=== PATIENT | female | born 1995 | race Caucasian/White ===

== ENCOUNTER 2016-07-17 21:47 | Inpatient (IN) | payer OTHER ==
[2016-07-17] MEDS ORDERED: SODIUM CHLORIDE 0.9% 1,000 ML IV STA (21:48)
[2016-07-17] MEDS ORDERED: SODIUM CHLORIDE 0.9% 500 ML IV STA (21:48)
[2016-07-17] MEDS ORDERED: NALOXONE 0.4 MG/ML 1 ML VIAL IV STA (21:48)
--- NOTE | 2016-07-17 21:50 | ED ---
General Adult HPI - General Stated complaint: unresponsive Time Seen by Provider: 07/17/16 21:48 Source: RN notes reviewed, old records reviewed - History of Present Illness Initial comments: This is a 20-year-old female ER for evaluation status post cardiopulmonary arrest. Patient is unaware of history secondary to critical status reviewed from EMS as well as bystanders, patient was found with needle and arm, EMS found patient with dilated eyes and unresponsiveness, she did go into V. tach during code. Patient was intubated cardioverted and currently in sinus tach being ventilated Review of Systems ROS Statement: Those systems with pertinent positive or pertinent negative responses have been documented in the HPI. ROS Other: All systems not noted in ROS Statement are negative. General Exam Limitations: altered mental status General appearance: obtunded, in distress Head exam: Present: atraumatic, normocephalic, normal inspection Eye exam: Present: other (Fixed and dilated). Absent: scleral icterus, conjunctival injection, periorbital swelling ENT exam: Present: normal exam, mucous membranes moist Neck exam: Present: normal inspection. Absent: tenderness, meningismus, lymphadenopathy Respiratory exam: Present: normal lung sounds bilaterally. Absent: respiratory distress, wheezes, rales, rhonchi, stridor Cardiovascular Exam: Present: normal rhythm, tachycardia, normal heart sounds. Absent: systolic murmur, diastolic murmur, rubs, gallop, clicks GI/Abdominal exam: Present: soft, normal bowel sounds. Absent: distended, tenderness, guarding, rebound, rigid Extremities exam: Present: normal inspection, full ROM, normal capillary refill. Absent: tenderness, pedal edema, joint swelling, calf tenderness Back exam: Present: normal inspection Neurological exam: Present: altered Skin exam: Present: cyanosis, diaphoretic, pallor, mottled. Absent: rash Course Vital Signs 07/17/16 07/17/16 07/17/16 21:47 22:07 22:28 Temperature 98.2 F Pulse Rate 148 H 126 H 114 H Respiratory 30 H 36 H Rate Blood Pressure 145/66 156/111 128/84 O2 Sat by Pulse 100 100 98 Oximetry - Reevaluation(s) Reevaluation #1: 07/17/16 22:38 Patient's pupils that are improved from fixed and dilated and responsive, Reevaluation #2: 03/19/17 22:38 Unable to get any other history from patient's medical record 07/17/16 22:38 history patient may have been vomiting blood of recent Reevaluation #3: 07/17/16 22:38 Patient will be thoroughly resuscitated, patient also has positive chest x-ray we'll treat for antibiotics for possible pneumonia EKG Findings - EKG Comments: EKG Findings:: EKG shows sinus tachycardia rate 146, pO2 96, QRS 80, QTC 536 Medical Decision Making - Medical Decision Making 20 female in the ER status post cardiopulmonary arrest, unknown cause arrest, patient was found with needle in right arm but no heroin or opiates in drug screen, no response to Narcan, patient originally was resuscitated with CPR and intubated and then went into V. fib, patient was cardioverted and continuing to be resuscitated, potter arrival to the emergency room patient was in sinus tachycardia, patient found to be unresponsive, pupils have improved and no longer fixed and dilated, chest x-ray suspicious for pneumonia, CT brain negative - Lab Data Result diagrams: 07/17/16 21:47 07/17/16 21:47 Lab Results 07/17/16 07/17/16 07/17/16 Range/Units 21:47 21:47 21:47 WBC 7.9 (3.8-10.6) k/uL RBC 4.44 (3.80-5.40) m/uL Hgb 12.6 (11.4-16.0) gm/dL Hct 40.3 (34.0-46.0) % MCV 90.8 (80.0-100.0) fL MCH 28.4 (25.0-35.0) pg MCHC 31.3 (31.0-37.0) g/dL RDW 12.4 (11.5-15.5) % Plt Count 249 (150-450) k/uL Neutrophils % 44 % Lymphocytes % 43 % Monocytes % 4 % Eosinophils % 6 % Basophils % 0 % Neutrophils # 3.5 (1.3-7.7) k/uL Lymphocytes # 3.4 (1.0-4.8) k/uL Monocytes # 0.3 (0-1.0) k/uL Eosinophils # 0.4 (0-0.7) k/uL Basophils # 0.0 (0-0.2) k/uL Hypochromasia Slight PT (9.0-12.0) sec INR (<1.1) Sodium 138 (137-145) mmol/L Potassium 4.5 (3.5-5.1) mmol/L Chloride 101 (98-107) mmol/L Carbon Dioxide 19 L (22-30) mmol/L Anion Gap 18 mmol/L BUN 11 (7-17) mg/dL Creatinine 0.94 (0.52-1.04) mg/dL Est GFR (MDRD) Af Amer >60 (>60 ml/min/1.73 sqM) Est GFR (MDRD) Non-Af >60 (>60 ml/min/1.73 sqM) Glucose 288 H (74-99) mg/dL Plasma Lactic Acid Josse 8.5 H* (0.7-2.0) mmol/L Calcium 8.6 (8.4-10.2) mg/dL Phosphorus 10.1 H* (2.5-4.5) mg/dL Magnesium 2.0 (1.6-2.3) mg/dL Total Bilirubin 0.6 (0.2-1.3) mg/dL AST 81 H (14-36) U/L ALT 89 H (9-52) U/L Alkaline Phosphatase 46 (38-126) U/L Total Protein 6.5 (6.3-8.2) g/dL Albumin 3.5 (3.5-5.0) g/dL Lipase 74 (23-300) U/L Urine Color Urine Appearance (Clear) Urine pH (5.0-8.0) Ur Specific [place] (1.001-1.035) Urine Protein (Negative) Urine Glucose (UA) (Negative) Urine Ketones (Negative) Urine Blood (Negative) Urine Nitrite (Negative) Urine Bilirubin (Negative) Urine Urobilinogen (<2.0) mg/dL Ur Leukocyte Esterase (Negative) Urine RBC (0-5) /hpf Urine WBC (0-5) /hpf Ur Squamous Epith Cells (0-4) /hpf Amorphous Sediment (None) /hpf Hyaline Casts (0-2) /lpf Urine Mucus (None) /hpf Urine HCG, Qual (Not Detectd) Salicylates <1.0 mg/dL Urine Opiates Screen (NotDetected) Ur Oxycodone Screen (NotDetected) Urine Methadone Screen (NotDetected) Ur Propoxyphene Screen (NotDetected) Acetaminophen <10.0 ug/mL Ur Barbiturates Screen (NotDetected) U Tricyclic Antidepress (NotDetected) Ur Phencyclidine Scrn (NotDetected) Ur Amphetamines Screen (NotDetected) U Methamphetamines Scrn (NotDetected) U Benzodiazepines Scrn (NotDetected) Urine Cocaine Screen (NotDetected) U Marijuana (THC) Screen (NotDetected) Serum Alcohol <10 mg/dL 07/17/16 07/17/16 07/17/16 Range/Units 21:47 22:10 22:10 WBC (3.8-10.6) k/uL RBC (3.80-5.40) m/uL Hgb (11.4-16.0) gm/dL Hct (34.0-46.0) % MCV (80.0-100.0) fL MCH (25.0-35.0) pg MCHC (31.0-37.0) g/dL RDW (11.5-15.5) % Plt Count (150-450) k/uL Neutrophils % % Lymphocytes % % Monocytes % % Eosinophils % % Basophils % % Neutrophils # (1.3-7.7) k/uL Lymphocytes # (1.0-4.8) k/uL Monocytes # (0-1.0) k/uL Eosinophils # (0-0.7) k/uL Basophils # (0-0.2) k/uL Hypochromasia PT 10.9 (9.0-12.0) sec INR 1.1 (<1.1) Sodium (137-145) mmol/L Potassium (3.5-5.1) mmol/L Chloride (98-107) mmol/L Carbon Dioxide (22-30) mmol/L Anion Gap mmol/L BUN (7-17) mg/dL Creatinine (0.52-1.04) mg/dL Est GFR (MDRD) Af Amer (>60 ml/min/1.73 sqM) Est GFR (MDRD) Non-Af (>60 ml/min/1.73 sqM) Glucose (74-99) mg/dL Plasma Lactic Acid Josse (0.7-2.0) mmol/L Calcium (8.4-10.2) mg/dL Phosphorus (2.5-4.5) mg/dL Magnesium (1.6-2.3) mg/dL Total Bilirubin (0.2-1.3) mg/dL AST (14-36) U/L ALT (9-52) U/L Alkaline Phosphatase (38-126) U/L Total Protein (6.3-8.2) g/dL Albumin (3.5-5.0) g/dL Lipase (23-300) U/L Urine Color Yellow Urine Appearance Cloudy H (Clear) Urine pH 7.0 (5.0-8.0) Ur Specific [place] 1.017 (1.001-1.035) Urine Protein 2+ H (Negative) Urine Glucose (UA) 1+ H (Negative) Urine Ketones Negative (Negative) Urine Blood Small H (Negative) Urine Nitrite Negative (Negative) Urine Bilirubin Negative (Negative) Urine Urobilinogen <2.0 (<2.0) mg/dL Ur Leukocyte Esterase Negative (Negative) Urine RBC 60 H (0-5) /hpf Urine WBC 56 H (0-5) /hpf Ur Squamous Epith Cells 3 (0-4) /hpf Amorphous Sediment Occasional H (None) /hpf Hyaline Casts 35 H (0-2) /lpf Urine Mucus Occasional H (None) /hpf Urine HCG, Qual Not Detected (Not Detectd) Salicylates mg/dL Urine Opiates Screen Not Detected (NotDetected) Ur Oxycodone Screen Not Detected (NotDetected) Urine Methadone Screen Not Detected (NotDetected) Ur Propoxyphene Screen Not Detected (NotDetected) Acetaminophen ug/mL Ur Barbiturates Screen Not Detected (NotDetected) U Tricyclic Antidepress Not Detected (NotDetected) Ur Phencyclidine Scrn Not Detected (NotDetected) Ur Amphetamines Screen Not Detected (NotDetected) U Methamphetamines Scrn Not Detected (NotDetected) U Benzodiazepines Scrn Detected H (NotDetected) Urine Cocaine Screen Not Detected (NotDetected) U Marijuana (THC) Screen Detected H (NotDetected) Serum Alcohol mg/dL - Radiology Data Radiology results: report reviewed (Chest x-ray shows possible infiltrates and edema, CT brain is negative for acute disease), image reviewed Critical Care Time Critical Care Time: Yes Total Critical Care Time: 65 Disposition Clinical Impression: Cardiopulmonary arrest, Ventricular fibrillation, Drug overdose Disposition: ADMITTED IP TO THIS [facility] Condition: Critical Referrals: None,Stated [Primary Care Provider] - 1-2 days
--- NOTE | 2016-07-17 22:08 | XR ---
EXAMINATION TYPE: XR chest 1V portable DATE OF EXAM: 07/17/2016 10:01 PM COMPARISON: CXR earlier. HISTORY: Tube Placement. TECHNIQUE: Single frontal supine view of the chest is obtained. FINDINGS: ET and new OGT satisfactory. There are new perihilar opacities bilaterally. No pleural eff usion, or pneumothorax is seen. The cardiac silhouette size is within normal limits. The osseous s tructures are intact. IMPRESSION: 1. ET and new OGT now satisfactory. 2. New bilateral perihilar edema +/- infiltrates.
[2016-07-17 22:09] LABS: Basophils % (A) 0 %; CH 27.9; CHCM 30.8; Eosinophils # (A) 0.4 k/uL (0-0.7); Eosinophils % (A) 6 %; HCT 40.3 % (34.0-46.0); HDW 2.34; HGB 12.6 gm/dL (11.4-16.0); Hypochromasia Slight; Luc # (Auto) 0.24; Luc % (Auto) 3; Lymphocytes # (A) 3.4 k/uL (1.0-4.8); Lymphocytes % (A) 43 %; MCH 28.4 pg (25.0-35.0); MCHC 31.3 g/dL (31.0-37.0); MCV 90.8 fL (80.0-100.0); Mean Platelet Volume 7.5; Monocytes # (A) 0.3 k/uL (0-1.0); Monocytes % (A) 4 %; Neutrophils # (A) 3.5 k/uL (1.3-7.7); Neutrophils % (A) 44 %; RBC 4.44 m/uL (3.80-5.40); RDW 12.4 % (11.5-15.5); WBC 7.9 k/uL (3.8-10.6)
[2016-07-17 22:19] LABS: ALT 89 U/L (9-52); Acetaminophen <10.0 ug/mL; Alcohol <10 mg/dL; Alkaline Phosphatase 46 U/L (38-126); Anion Gap 18 mmol/L; Blood Urea Nitrogen 11 mg/dL (7-17); Calcium 8.6 mg/dL (8.4-10.2); Carbon Dioxide 19 mmol/L (22-30); Chloride 101 mmol/L (98-107); Glucose 288 mg/dL (74-99); Non-African American GFR(MDRD) >60 (>60 ml/min/1.73 sqM); Potassium 4.5 mmol/L (3.5-5.1); Salicylate <1.0 mg/dL; Sodium 138 mmol/L (137-145); Total Bilirubin 0.6 mg/dL (0.2-1.3); Total Protein 6.5 g/dL (6.3-8.2)
[2016-07-17 22:22] LABS: INR 1.1 (<1.1); Prothrombin Time 10.9 sec (9.0-12.0)
[2016-07-17] MEDS ORDERED: LEVOFLOXACIN 750MG-D5W PMX 750 MG in DEXTROSE/WATER 1 150ML.BAG IVPB STA (22:22)
[2016-07-17] MEDS ORDERED: NALOXONE 0.4 MG/ML 10 ML VIAL IVP STA (22:22)
[2016-07-17 22:23] LABS: Amorphous Sediment,Urine Occasional /hpf; Appearance,Urine Cloudy (Clear); Bilirubin,Urine Negative (Negative); Glucose,Urine (UA) 1+ (Negative); Ketones,Urine Negative (Negative); Leukocyte Esterase,Urine Negative (Negative); Mucus,Urine Occasional /hpf; Nitrite,Urine Negative (Negative); Particle Count 25932; Protein,Urine 2+ (Negative); RBC,Urine 60 /hpf (0-5); Specific Gravity,Urine 1.017 (1.001-1.035); Squamous Epithelial Cell,Urine 3 /hpf (0-4); UA Billing (MACRO vs. MICRO) MICRO; Urobilinogen,Urine <2.0 mg/dL (<2.0); WBC,Urine 56 /hpf (0-5)
[2016-07-17 22:24] LABS: AST 81 U/L (14-36)
[2016-07-17 22:27] LABS: Phosphorous 10.1 mg/dL (2.5-4.5)
[2016-07-17 22:30] LABS: Creatine Kinase 162 U/L (30-135)
[2016-07-17] MEDS ORDERED: NALOXONE 0.4 MG/ML 1 ML VIAL IV PRN (22:33)
[2016-07-17] MEDS ORDERED: IPRATROPIUM-ALBUTEROL 3 ML NEB INHALATION PRN (22:33)
[2016-07-17 22:42] LABS: Creatine Kinase MB 1.2 ng/mL (0.0-2.4); Troponin I <0.012 ng/mL (0.000-0.034)
[2016-07-17] MEDS ORDERED: RX INFO: IV CONTRAST WAS GIVEN 1 EACH MISC MISCELLANE PRN (23:07)
[2016-07-17] MEDS ORDERED: PROPOFOL 500 MG in EMPTY BAG 1 BAG IV ONE (23:07)
[2016-07-17 23:09] LABS: ABG Base Excess -6.5 mmol/L; ABG HCO3 19 mmol/L (21-25); ABG PCO2 41 mmHg (35-45); ABG PH 7.29 (7.35-7.45); ABG PO2 142 mmHg (83-108); ABG TCO2 20 mmol/L (19-24)
[2016-07-17] MEDS ORDERED: ALBUTEROL NEBULIZED 2.5 MG/3 ML INHALATION STA (23:11)
--- NOTE | 2016-07-17 23:24 | CT ---
EXAM: CT Head Without Intravenous Contrast. CLINICAL HISTORY: Reason: weakness TECHNIQUE: Axial computed tomography images of the head/brain without intravenous contrast. Coronal and sagittal reconstructions are performed. CTDI is 57.4 mGy and DLP is 995.5 mGy-cm COMPARISON: No relevant prior studies available. FINDINGS: Brain: Unremarkable. No hemorrhage. No significant white matter disease. No edema. Ventricles: Unremarkable. No ventriculomegaly. Bones/joints: Unremarkable. No acute fracture. Soft tissues: Unremarkable. Sinuses: Moderate amount of opacification in ethmoid air cells, left maxillary sinus and bilateral sphenoid sinuses. Mastoid air cells: Unremarkable as visualized. No mastoid effusion. IMPRESSION: No acute intracranial findings.
--- NOTE | 2016-07-18 00:19 | XR ---
INDICATION: Chest pain COMPARISON: CXR 07/17/16 performed at 2151 hrs. FINDINGS: Single frontal view of the chest is provided. Endotracheal tube, endogastric tube remain in stable position. There are patchy bilateral airspace opacities, unchanged. There is no pleural effusion or pneumothorax. Transcutaneous pacer pad projects over the right chest. Heart size and pulmonary vascularity are normal. Visualized osseous structures are unremarkable. IMPRESSION: 1. Stable endotracheal tube and endogastric tube. 2. Unchanged bilateral airspace opacities.
[2016-07-18] MEDS: DEXTROSE 5%-0.45% NACL 1,000 ML IV SCH ×3 (00:21→19:28)
[2016-07-18] MEDS: PROPOFOL 500 MG in EMPTY BAG 1 BAG IV SCH ×3 (01:05→13:25)
[2016-07-18 01:18] LABS: Glucose,Whole Blood 297 mg/dL (75-99)
--- NOTE | 2016-07-18 01:22 | CT ---
EXAM: CT Chest With Intravenous Contrast. CLINICAL HISTORY: Reason: Pain TECHNIQUE: Axial computed tomography images of the chest with intravenous contrast. DLP is 252.70 mGy-cm COMPARISON: No relevant prior studies available. FINDINGS: Lungs: No central pulmonary embolus. Bilateral nodular infiltrates and consolidation/aspiration. Pleural space: Unremarkable. No pneumothorax. No effusion. Heart: No cardiomegaly. No pericardial effusion. Bones/joints: No acute fracture. Soft tissues: Unremarkable. Vasculature: Unremarkable. Lymph nodes: No enlarged lymph nodes. Tubes, lines and devices: Endotracheal tube. Enteric tube in the gastroduodenal region. IMPRESSION: 1. No central pulmonary embolus. 2. Bilateral nodular infiltrates and consolidation/aspiration.
[2016-07-18] MEDS ORDERED: NOREPINEPHRINE 4 MG in SODIUM CHLORIDE 0.9% 250 ML IV SCH (03:30)
[2016-07-18] MEDS ORDERED: levETIRAcetam IV 1,000 MG in SALINE 1 100ML.BAG IVPB STA (03:35)
[2016-07-18] MEDS ORDERED: INSULIN LISPRO (humaLOG) 300 UNIT/3 ML VIAL SQ SCH (03:45)
[2016-07-18] MEDS: IPRATROPIUM-ALBUTEROL 3 ML NEB INHALATION SCH ×6 (04:01→23:11)
[2016-07-18 04:13] LABS: Appearance,Urine Clear (Clear); Bilirubin,Urine Negative (Negative); Glucose,Urine (UA) 3+ (Negative); Ketones,Urine Negative (Negative); Leukocyte Esterase,Urine Negative (Negative); Nitrite,Urine Negative (Negative); PH, Urine 5.5 (5.0-8.0); Protein,Urine Negative (Negative); UA Billing (MACRO vs. MICRO) CHEM; Urobilinogen,Urine <2.0 mg/dL (<2.0)
[2016-07-18 05:03] LABS: Glucose,Whole Blood 180 mg/dL (75-99)
[2016-07-18 05:25] LABS: CH 28.6; CHCM 33.3; HCT 40.3 % (34.0-46.0); HDW 2.54; HGB 13.6 gm/dL (11.4-16.0); Immature Gran Flag Moderate; MCHC 33.6 g/dL (31.0-37.0); MCV 86.3 fL (80.0-100.0); Mean Platelet Volume 8.2; RBC 4.67 m/uL (3.80-5.40); RDW 12.5 % (11.5-15.5); WBC 8.1 k/uL (3.8-10.6)
[2016-07-18] MEDS: ACETAMINOPHEN IV (For NPO) 1,000 MG in EMPTY BAG 1 BAG IVPB PRN ×2 (05:25→13:03)
[2016-07-18 05:38] LABS: ALT 87 U/L (9-52); AST 79 U/L (14-36); Alkaline Phosphatase 34 U/L (38-126); Anion Gap 9 mmol/L; Blood Urea Nitrogen 12 mg/dL (7-17); Calcium 7.7 mg/dL (8.4-10.2); Carbon Dioxide 23 mmol/L (22-30); Chloride 105 mmol/L (98-107); Glucose 182 mg/dL (74-99); Magnesium 1.5 mg/dL (1.6-2.3); Non-African American GFR(MDRD) >60 (>60 ml/min/1.73 sqM); Phosphorous 2.5 mg/dL (2.5-4.5); Potassium 4.4 mmol/L (3.5-5.1); Sodium 137 mmol/L (137-145); Total Bilirubin 0.6 mg/dL (0.2-1.3); Total Protein 5.9 g/dL (6.3-8.2)
[2016-07-18 05:40] LABS: Add Differential Manual Differential
[2016-07-18 05:42] LABS: Nucleated Red Blood Cells 0 /100 WBC (0-0); Total Cells Counted 100
[2016-07-18 05:43] LABS: Manual Review Performed
[2016-07-18] MEDS ORDERED: Potassium Replacement Protocol 1 EACH MISC MISCELLANE PRN (05:48)
[2016-07-18] MEDS ORDERED: Phosphorus Replacement Protoco 1 EACH MISC MISCELLANE PRN (05:48)
[2016-07-18] MEDS ORDERED: Magnesium Replacement Protocol 1 EACH MISC MISCELLANE PRN (05:48)
[2016-07-18 05:51] LABS: ABG Base Excess -2.6 mmol/L; ABG HCO3 22 mmol/L (21-25); ABG PCO2 36 mmHg (35-45); ABG PO2 136 mmHg (83-108); ABG TCO2 23 mmol/L (19-24)
[2016-07-18] MEDS: MAGNESIUM SULFATE-D5W PMX 1 GM in DEXTROSE/WATER 1 100ML.BAG IVPB SCH ×2 (06:13→07:26)
[2016-07-18] MEDS ORDERED: PNEUMOCOCCAL VACC-PNEUMOVAX 23 25 MCG/0.5 ML VIAL IM ONE (07:10)
[2016-07-18] MEDS: INSULIN LISPRO (humaLOG) 300 UNIT/3 ML VIAL SQ SCH ×3 (07:27→17:54)
[2016-07-18] MEDS: HEPARIN SODIUM,PORCINE 5,000 UNIT/ML 1 ML VIAL SQ SCH ×2 (08:05→15:24)
[2016-07-18] MEDS: CHLORHEXIDINE GLUCONATE 15 ML CUP MUCOUS MEM SCH ×2 (08:05→22:00)
[2016-07-18] MEDS: PANTOPRAZOLE 40 MG/10 ML VIAL IV SCH (08:55)
[2016-07-18 08:58] LABS: Hemoglobin A1C 5.2 % (4.2-6.1)
[2016-07-18] MEDS ORDERED: levETIRAcetam IV 750 MG in SODIUM CHLORIDE 0.9% 100 ML IVPB SCH (09:00)
[2016-07-18] MEDS: PIPERACILLIN-TAZOBACTAM 3.375 GM in DEXTROSE/WATER 1 50ML.BAG IVPB SCH ×2 (09:55→15:25)
--- NOTE | 2016-07-18 09:59 | XR ---
EXAMINATION TYPE: XR chest 1V DATE OF EXAM: 07/18/2016 6:40 AM COMPARISON: Prior chest x-ray 17 July 2016 HISTORY: Intubation TECHNIQUE: Single frontal view of the chest is obtained. FINDINGS: Endotracheal tube and NG tube are overlying appropriate positions, there is an overlying d efibrillator pad. Perihilar airspace disease is present. No pneumothorax or pleural effusion. Cardiom ediastinal silhouette not significantly changed. IMPRESSION: Perihilar edema versus pneumonia, follow-up recommended
--- NOTE | 2016-07-18 12:00 | CT ---
EXAMINATION TYPE: CT brain wo con DATE OF EXAM: 07/18/2016 11:53 AM COMPARISON: NONE HISTORY: Patient shows signs of altered mental status and possible seizure activity post drug overdos e. CT DLP: 766.2 mGycm Automated exposure control for dose reduction was used. FINDINGS: There is no acute intracranial hemorrhage, mass effect, or midline shift identified. The ventricles and sulci are within normal limits in size. Findings a moderate sinusitis. IMPRESSION: 1. No acute intracranial hemorrhage, mass effect, or midline shift is seen. 2. Chronic sinusitis.
[2016-07-18 12:31] LABS: Glucose,Whole Blood 149 mg/dL (75-99)
[2016-07-18] MEDS ORDERED: VALPROATE SODIUM IVPB ONE (12:49)
[2016-07-18] MEDS ORDERED: SODIUM CHLORIDE 0.9% IVPB ONE (12:49)
--- NOTE | 2016-07-18 15:52 | P.CNPUL ---
History of Present Illness Consult date: 07/18/16 Requesting physician: Bryant Gutierrez Reason for consult: other (Acute respiratory failure secondary to cardiopulmonary arrest) Chief complaint: Unresponsiveness History of present illness: This is a 20-year-old female with history of IV drug abuse, alcohol abuse, patient was recently released from a rehab facility and while at her boyfriend's , patient apparently suffered from a sudden collapse. EMS arrived, patient was found to have an empty needle in her arm, patient was noted to have dilated pupils, she was unresponsive, and while EMS was at the site, patient had an episode of V. tach during the code. Down time must have been at least over 10 minutes according to her mother. In the meantime the patient was intubated, defibrillated, cardioverted, and brought into the ER being ventilated. Upon arrival she was in sinus tachycardia, and she was unresponsive. Workup in the ER included a CT of the brain which was unremarkable. Drug screen was negative. CT of the chest showed bilateral pneumonia this was also noted on the chest x-ray. Apparently the findings are consistent with possible aspiration. Upon my evaluation in the ICU, patient is noted to be unresponsive to any stimuli, there is upward deviation of both eyes patient is having upper muscle jerking intermittently, hence she was loaded with Keppra by the neurologist, and neurological evaluation is pending. Upon my evaluation, I felt the patient must have sustained a significant anoxic brain injury touched bases on this with her mother at bedside, but I felt it would be best to determine the severity of her oxygen brain injury over the next 72 hours. And she is yet to be seen by neurology on consultation. Recommended empiric antibiotics for aspiration pneumonia, patient is now on GI and DVT prophylaxis, and repeat CT of the brain this morning showed no evidence of acute process involving the brain. Review of Systems ROS unobtainable: due to endotracheal tube, due to mental status Past Medical History Past Medical History: Unable to Obtain Additional Past Medical History / Comment(s): hepatitis C via EMS; Drug OD 10- 15 times; History of Any Multi-Drug Resistant Organisms: None Reported Past Surgical History: Adenoidectomy, Appendectomy Additional Past Surgical History / Comment(s): ear tubes Past Anesthesia/Blood Transfusion Reactions: No Reported Reaction Additional Past Anesthesia/Blood Transfusion Reaction / Comment(s): no hx of blood transfusions Past Psychological History: Anxiety, Bipolar, Depression Smoking Status: Current every day smoker Past Drug Use History: Heroin, IV Drug Use - Past Family History Mother Additional Family Medical History / Comment(s): deviated septum, lost hearing in left ear (60%) to a virus a few years ago Father Additional Family Medical History / Comment(s): from OD about 1.5 months ago Medications and Allergies Allergies Allergy/AdvReac Type Severity Reaction Status Date / Time No Known Allergies Allergy Verified 07/17/16 23:49 Physical Exam Vitals: Vital Signs Temp Pulse Resp BP Pulse Ox 07/18/16 15:33 112 H 07/18/16 15:00 111 H 30 H 122/60 100 07/18/16 14:30 117 H 30 H 122/60 100 07/18/16 14:00 122 H 30 H 122/60 100 07/18/16 13:30 126 H 29 H 122/60 100 07/18/16 13:00 136 H 29 H 118/59 100 07/18/16 12:30 116 H 28 H 118/59 100 07/18/16 12:00 100.4 F H 122 H 24 118/59 100 07/18/16 11:00 124 H 25 H 101/62 100 07/18/16 10:30 120 H 22 101/62 100 07/18/16 10:00 118 H 26 H 101/62 97 07/18/16 09:30 114 H 17 101/62 100 07/18/16 09:00 101 H 26 H 96/54 100 07/18/16 08:30 97 23 96/54 100 07/18/16 08:00 99.5 F 105 H 16 96/54 100 07/18/16 07:35 96 07/18/16 07:30 95 18 100 07/18/16 07:19 91 07/18/16 07:00 97 23 91 L 07/18/16 06:45 93 26 H 92 L 07/18/16 06:30 100 F H 94 20 98 07/18/16 06:15 94 25 H 100 07/18/16 06:00 102 H 20 100 07/18/16 05:45 97 20 100 07/18/16 05:30 100.4 F H 101 H 28 H 100 07/18/16 05:15 97 25 H 100 07/18/16 05:00 98 28 H 100 07/18/16 04:45 95 23 100 07/18/16 04:30 100.4 F H 95 25 H 100 07/18/16 04:15 94 25 H 100 07/18/16 04:00 100 F H 93 25 H 100 07/18/16 03:58 92 07/18/16 03:45 99.7 F H 92 30 H 100 07/18/16 03:43 91 07/18/16 03:30 90 26 H 100 07/18/16 03:15 99.3 F 89 24 100 07/18/16 03:00 99 F 91 22 100 07/18/16 02:45 88 22 99 07/18/16 02:30 98.6 F 91 27 H 127/69 99 07/18/16 02:15 93 24 131/72 100 07/18/16 02:00 98.2 F 93 24 127/70 97 07/18/16 01:45 97.9 F 93 20 130/76 100 07/18/16 01:30 104 H 20 132/75 98 07/18/16 01:15 95.8 F L 93 24 132/81 99 07/18/16 01:05 106 H 24 131/79 98 07/18/16 00:23 96.9 F L 90 28 H 130/76 100 07/18/16 00:02 90 28 H 130/78 100 07/17/16 23:38 99 36 H 134/81 97 07/17/16 23:18 104 H 32 H 144/84 90 L 07/17/16 23:03 107 H 34 H 140/88 93 L 07/17/16 22:53 103 H 32 H 139/92 89 L Intake and Output 07/18/16 07/18/16 07/18/16 06:59 14:59 22:59 Intake Total 733.165 6082.104 133 Output Total 715 1050 50 Balance 132.034 142.104 83 Intake: IV 15 34 13 0.9 normal saline at KVO 10 10 0.9 normal saline for 21 3 pressure Pressure bag 15 3 Intake, IV Titration 302.103 6799.104 100 Amount ACETAMINOPHEN IV (For NPO 100 100 ) 1,000 mg In Empty Bag 1 bag @ 400 mls/hr IVPB Q6H PRN Rx#:[id number] Dextrose 5%-0.45% NaCl 1, 500 700 100 000 ml @ 100 mls/hr IV . Q10H [facility] Rx#:[id number] Magnesium Sulfate-D5w Pmx 100 100 1 gm In Dextrose/Water 1 100ml.bag @ 100 mls/hr IVPB Q1H [facility] Rx#: [id number] Piperacillin-Tazobactam 3 50.0 .375 gm In Dextrose/Water 1 50ml.bag @ 12.5 mls/hr IVPB Q8HR [facility] Rx#: [id number] Propofol 500 mg In Empty 2.607 Bag 1 bag @ Titrate IV . Q0M ONE Rx#:[id number] Propofol 500 mg In Empty 29.427 16.909 Bag 1 bag @ Titrate IV . Q0M [facility] Rx#:[id number] Propofol 500 mg In Empty 1.195 Bag 1 bag @ Titrate IV . Q0M [facility] Rx#:[id number] Valproate Sodium 820 mg 50 In Sodium Chloride 0.9% 50 ml @ 50 mls/hr IVPB ONCE ONE Rx#:[id number] levETIRAcetam IV 1,000 mg 100 In Saline 1 100ml.bag @ 400 mls/hr IVPB ONCE STA Rx#:[id number] levETIRAcetam IV 750 mg 100 In Sodium Chloride 0.9% 100 ml @ 400 mls/hr IVPB Q12HR [facility] Rx#:[id number] Tube Feeding 40 20 Output: Gastric Drainage 325 Urine 715 725 50 Other: Voiding Method Incontinent Indwelling Catheter Indwelling Catheter Weight 54.4 kg 54.4 kg Patient Weight 07/19/16 06:59 Weight 54.4 kg ABP, PAP, CO, CI - Last 8 Hours Arterial Blood Pressure 145/72 Arterial Blood Pressure 152/68 Arterial Blood Pressure 152/72 Arterial Blood Pressure 138/67 Arterial Blood Pressure 153/75 Arterial Blood Pressure 154/79 Arterial Blood Pressure 151/76 Arterial Blood Pressure 151/61 Arterial Blood Pressure 142/67 Arterial Blood Pressure 134/55 Arterial Blood Pressure 131/63 Arterial Blood Pressure 134/55 Arterial Blood Pressure 125/56 Arterial Blood Pressure 126/54 Limitations: altered mental status General appearance: obtunded, unresponsive on mechanical ventilation Head exam: Present: atraumatic, normocephalic, normal inspection Eye exam: Pupils are both reactive to light however there is upward deviation of both eyeballs. ENT exam: Present: normal exam, mucous membranes moist Neck exam: Present: normal inspection. Absent: tenderness, meningismus, lymphadenopathy Respiratory exam: Minimal crackles at the bases, no rhonchi, no wheezes Cardiovascular Exam: Present: normal rhythm, tachycardia, normal heart sounds. Absent: systolic murmur, diastolic murmur, rubs, gallop, clicks GI/Abdominal exam: Present: soft, normal bowel sounds. Absent: distended, tenderness, guarding, rebound, rigid Extremities exam: Present: normal inspection, full ROM, normal capillary refill. Absent: tenderness, pedal edema, joint swelling, calf tenderness Back exam: Present: normal inspection Neurological exam: Present: altered, patient is unresponsive to any stimuli, upward deviation of both eyes noted pupils are both reactive no response to any painful stimuli. Skin exam: No cyanosis noted. And no clubbing. Results - Laboratory Findings CBC and BMP: 07/18/16 04:50 07/18/16 04:50 ABG ABG pH 7.40 (7.35-7.45) 07/18/16 05:40 ABG pCO2 36 mmHg (35-45) 07/18/16 05:40 ABG pO2 136 mmHg (83-108) H 07/18/16 05:40 ABG O2 Saturation 99.0 % (94-97) H 07/18/16 05:40 PT/INR, D-dimer PT 10.9 sec (9.0-12.0) 07/17/16 21:47 INR 1.1 (<1.1) 07/17/16 21:47 D-Dimer 1.31 mg/L FEU (<0.60) H 07/17/16 21:47 Abnormal lab findings: Abnormal Labs 07/18/16 07/18/16 07/18/16 01:15 01:22 03:30 Lymphocytes # (Manual) ABG pO2 ABG O2 Saturation ABG Lactic Acid Creatinine Glucose POC Glucose (mg/dL) 297 H Plasma Lactic Acid Josse 4.2 H* Calcium Magnesium AST ALT Alkaline Phosphatase Troponin I Total Protein Albumin Ur Specific [place] 1.050 H Urine Glucose (UA) 3+ H 07/18/16 07/18/16 07/18/16 04:50 04:50 04:50 Lymphocytes # (Manual) 0.1 L ABG pO2 ABG O2 Saturation ABG Lactic Acid 3.2 H* Creatinine 0.50 L Glucose 182 H POC Glucose (mg/dL) Plasma Lactic Acid Josse Calcium 7.7 L Magnesium 1.5 L AST 79 H ALT 87 H Alkaline Phosphatase 34 L Troponin I Total Protein 5.9 L Albumin 3.0 L Ur Specific [place] Urine Glucose (UA) 07/18/16 07/18/16 07/18/16 04:58 05:40 12:29 Lymphocytes # (Manual) ABG pO2 136 H ABG O2 Saturation 99.0 H ABG Lactic Acid Creatinine Glucose POC Glucose (mg/dL) 180 H 149 H Plasma Lactic Acid Josse Calcium Magnesium AST ALT Alkaline Phosphatase Troponin I Total Protein Albumin Ur Specific [place] Urine Glucose (UA) 07/18/16 13:20 Lymphocytes # (Manual) ABG pO2 ABG O2 Saturation ABG Lactic Acid Creatinine Glucose POC Glucose (mg/dL) Plasma Lactic Acid Josse Calcium Magnesium AST ALT Alkaline Phosphatase Troponin I 1.600 H* Total Protein Albumin Ur Specific [place] Urine Glucose (UA) - Diagnostic Findings Chest x-ray: image reviewed CT scan - chest: image reviewed Additional studies: CT of the brain was also reviewed no evidence of acute process noted. Assessment and Plan Plan: Impression: 1 status post acute cardiopulmonary arrest, most likely secondary to heroin overdose. Although her drug screen was negative, and no response was noted to Narcan upon initial evaluation by EMS. 2 acute episode of ventricular fibrillation requiring cardioversion by EMS in the field. 3 acute bilateral aspiration pneumonia 4 acute respiratory failure secondary to above. Requiring intubation and mechanical ventilation. 5 history of IV drug abuse and alcohol abuse 6 strongly suspect severe anoxic brain injury. Recommendation: Continue present supportive care measures including mechanical ventilation, GI and DVT prophylaxis, seizure precautions and she is presently on Keppra, nutritional support, empiric antibiotics for aspiration pneumonia, neurological consultation which is pending, and over the next 72 hours, we'll discuss with the family again her neurological recovery if any. Prognosis is definitely poor and guarded. We will continue to follow. Time with Patient: Greater than 30
[2016-07-18] MEDS ORDERED: VALPROATE SODIUM 500 MG in SODIUM CHLORIDE 0.9% 50 ML IVPB SCH (16:00)
[2016-07-18 17:55] LABS: Glucose,Whole Blood 91 mg/dL (75-99)
[2016-07-18] MEDS: levETIRAcetam IV 1,000 MG in SODIUM CHLORIDE 0.9% 100 ML IVPB SCH (22:00)
[2016-07-18] MEDS: LACOSAMIDE IV 150 MG in SODIUM CHLORIDE 0.9% 50 ML IVPB SCH (22:00)
[2016-07-19 00:43] LABS: Glucose,Whole Blood 117 mg/dL (75-99)
[2016-07-19] MEDS: INSULIN LISPRO (humaLOG) 300 UNIT/3 ML VIAL SQ SCH ×5 (01:44→23:53)
[2016-07-19] MEDS: PIPERACILLIN-TAZOBACTAM 3.375 GM in DEXTROSE/WATER 1 50ML.BAG IVPB SCH ×4 (01:44→23:40)
[2016-07-19] MEDS: VALPROATE SODIUM 500 MG in SODIUM CHLORIDE 0.9% 50 ML IVPB SCH ×5 (01:44→23:40)
[2016-07-19] MEDS: HEPARIN SODIUM,PORCINE 5,000 UNIT/ML 1 ML VIAL SQ SCH ×4 (01:45→23:40)
[2016-07-19] MEDS ORDERED: LABETALOL 5 MG/ML VIAL MDV IVP PRN (02:56)
[2016-07-19] MEDS: IPRATROPIUM-ALBUTEROL 3 ML NEB INHALATION SCH ×6 (03:20→23:04)
[2016-07-19] MEDS: PROPOFOL 500 MG in EMPTY BAG 1 BAG IV SCH ×6 (04:00→21:40)
[2016-07-19 04:55] LABS: CH 28.3; CHCM 33.2; HGB 12.2 gm/dL (11.4-16.0); MCH 28.2 pg (25.0-35.0); MCV 85.6 fL (80.0-100.0); Mean Platelet Volume 7.3; RBC 4.32 m/uL (3.80-5.40); RDW 12.6 % (11.5-15.5); WBC 10.9 k/uL (3.8-10.6)
[2016-07-19] MEDS: DEXTROSE 5%-0.45% NACL 1,000 ML IV SCH ×2 (05:00→15:36)
[2016-07-19 05:04] LABS: ALT 65 U/L (9-52); AST 64 U/L (14-36); Alkaline Phosphatase 44 U/L (38-126); Anion Gap 8 mmol/L; Blood Urea Nitrogen 9 mg/dL (7-17); Calcium 8.2 mg/dL (8.4-10.2); Carbon Dioxide 26 mmol/L (22-30); Chloride 107 mmol/L (98-107); Glucose 109 mg/dL (74-99); Magnesium 2.4 mg/dL (1.6-2.3); Non-African American GFR(MDRD) >60 (>60 ml/min/1.73 sqM); Phosphorous 3.6 mg/dL (2.5-4.5); Potassium 4.2 mmol/L (3.5-5.1); Sodium 141 mmol/L (137-145); Total Bilirubin 0.6 mg/dL (0.2-1.3); Total Protein 5.5 g/dL (6.3-8.2)
[2016-07-19 06:17] LABS: Glucose,Whole Blood 116 mg/dL (75-99)
--- NOTE | 2016-07-19 07:23 | XR ---
EXAMINATION TYPE: XR chest 1V portable DATE OF EXAM: 07/19/2016 6:52 AM COMPARISON: 07/18/2016 HISTORY: Shortness of TECHNIQUE: Single frontal view of the chest is obtained. FINDINGS: ET and NG tube stable. There is improvement in the perihilar areas of consolidation. No pl eural effusion or pneumothorax. IMPRESSION: 1. Improving perihilar areas of infiltrate or consolidation.
[2016-07-19] MEDS: levETIRAcetam IV 1,000 MG in SODIUM CHLORIDE 0.9% 100 ML IVPB SCH ×2 (08:12→20:38)
--- NOTE | 2016-07-19 08:15 | CONS ---
DATE OF CONSULTATION: CHIEF COMPLAINT: Cardiac arrest. This is a 20-year-old lady with no significant past medical history who presented to [facility] having had an episode of cardiac arrest at home. She apparently overdosed on some drug and came in. It is unclear how far she was down. When the EMS first arrived, she was in ventricular fibrillation. She was resuscitated, brought in. I do not have the rhythm strips to evaluate at this time. I am going by the history I got. There is no prior history, cardiac-segovia. There were no prescription medications at home. SOCIAL HISTORY: Significant for drug abuse. REVIEW OF SYSTEMS: I am unable to obtain from the patient. On exam, heart rate is 116 beats per minute, irregular. Blood pressure is varying between 118/60 to 154/79. She is intubated on vent and seemed to be having seizures. Chest exam reveals good air entry bilaterally. Heart exam reveals first and second heart sounds. No gallop. Abdomen is soft. Exam of the extremities did not reveal any edema. Peripheral pulses are palpable. Labs show that the hemoglobin is 13.6, platelet count is 197, creatinine is 0.5, potassium is 4.4. Rhythm strips show that she is in sinus tachycardia. EKG shows sinus tachycardia. CTA of the chest was done and it was negative for pulmonary embolism. ASSESSMENT: Status post cardiac arrest. PLAN: Patient is critically ill, probably suffered hypoxic encephalopathy. Prognosis guarded. I will obtain a 2-D echo to assess her LV function and wall motion. I will obtain set of troponin on her. I really do not think it is going to change a whole lot of our management plans at this time.
[2016-07-19] MEDS: PANTOPRAZOLE 40 MG/10 ML VIAL IV SCH (08:17)
[2016-07-19] MEDS: CHLORHEXIDINE GLUCONATE 15 ML CUP MUCOUS MEM SCH ×2 (08:17→20:38)
[2016-07-19] MEDS: LABETALOL SYRINGE 5 MG/ML IVP PRN ×3 (08:17→20:39)
[2016-07-19] MEDS: LACOSAMIDE IV 150 MG in SODIUM CHLORIDE 0.9% 50 ML IVPB SCH ×2 (08:18→20:38)
[2016-07-19] MEDS ORDERED: HYDROmorphone 1 MG/ML 1 ML SYRINGE ONE (08:50)
--- NOTE | 2016-07-19 09:25 | HP ---
DATE OF ADMISSION: Patient is a 20-year-old female who came in with suspicious overdose of opiates and patient's urine drug screen is negative for opiates or heroin. The suspicion is patient may have used ( ). Patient was brought in by her boyfriend, suffered a sudden collapse. Patient underwent cardiopulmonary resuscitation. Patient was apparently found to have needle in the antecubital fossa in one of her hands and EMS resuscitated her. Patient had V-tach during the code and patient was subsequently intubated, defibrillated, cardioverted, brought into the hospital. Patient is presenting on assist-control ventilation, breathing over the ventilator on ( ) settings and patient has constant myoclonus for which we have started on Keppra. Patient's pupillary reflects and hypertensive because of her myoclonus, although patient does not have ( ), she is breathing over the ventilator and patient was started on antibiotics by Dr. Marvin without for possibility of aspiration pneumonia. Patient has bilateral pneumonia, which can be from resuscitating this patient itself. CT of the brain was done which is unremarkable and patient was hypothermic when she came in and was started on ( ). She started spiking fevers and patient is presently unresponsive to painful stimuli although on propofol, which I recommended to discontinue to the ICU nursing staff, which will be weaned off as tolerated. Patient appears to have suffered significant anoxic brain injury, although appears to have some brain stimulus affect as evidenced by breathing over the ventilator. REVIEW OF SYSTEMS: Unable to obtain. PAST MEDICAL HISTORY, SOCIAL HISTORY, FAMILY HISTORY: Unable to obtain. Patient apparently had bipolar disorder and depression. Patient's mother was at bedside. I had extensive discussion with the mother. Patient is only daughter for her mother. Family history of father using drugs. Patient had adenoidectomy, appendectomy. PHYSICAL EXAMINATION: VITAL SIGNS: Temperature 100.4, pulse of 112, respiratory rate of 30. Patient is breathing over the ventilator, blood pressure is 120/60, saturating at 100%. Please refer to interactive media director's dictation for further units of vent settings. Patient score of RADS of -3 and is not responding to any clinical stimuli. CARDIOVASCULAR: S1 and S2 present, mildly tachycardic. No murmurs, rubs, or gallops. Lung examination, mechanical breath sounds, no wheezing was appreciated. No crackles were appreciated. EXTREMITIES: ( ) cyanotic, no pedal edema. Neurological examination: Patient is barely responding to any painful stimuli. The rest of the reflexes are as mentioned above. LABORATORY DATA: Plasma lactic is 4.2. Patient is receiving IV fluids. Glucose is elevated, now lactic acid is around 4.2, magnesium 1.5 which will be supplemented. AST and ALT are elevated. Patient does have history of hepatitis C. ASSESSMENT AND PLAN: 1. Opiate overdose with cardiopulmonary arrest. 2. Acute respiratory failure secondary to cardiopulmonary arrest. 3. Episode of ventricular tachycardia. 4. Bilateral aspiration pneumonia. 5. Alcohol abuse. 6. Possible opiate overdose, that is ( ) overdose. 7. Constant myoclonus ( ). CT scan anoxic brain injury. 8. Lactic acidosis due to the cardiopulmonary arrest and ( ). Plan is to continue with IV fluids. Continue with respiratory support, seizure precautions with Keppra and Neuro will be consulted. ( ). Prognosis appears to be guarded at this time. MTDD
[2016-07-19 12:04] LABS: Glucose,Whole Blood 115 mg/dL (75-99)
--- NOTE | 2016-07-19 12:10 | P.PN ---
Subjective Principal diagnosis: Acute respiratory failure secondary to cardiopulmonary arrest, anoxic brain injury This is a 20-year-old female with history of IV drug abuse, alcohol abuse, patient was recently released from a rehab facility and while at her boyfriend's , patient apparently suffered from a sudden collapse. EMS arrived, patient was found to have an empty needle in her arm, patient was noted to have dilated pupils, she was unresponsive, and while EMS was at the site, patient had an episode of V. tach during the code. Down time must have been at least over 10 minutes according to her mother. In the meantime the patient was intubated, defibrillated, cardioverted, and brought into the ER being ventilated. Upon arrival she was in sinus tachycardia, and she was unresponsive. Workup in the ER included a CT of the brain which was unremarkable. Drug screen was negative. CT of the chest showed bilateral pneumonia this was also noted on the chest x-ray. Apparently the findings are consistent with possible aspiration. Upon my evaluation in the ICU, patient is noted to be unresponsive to any stimuli, there is upward deviation of both eyes patient is having upper muscle jerking intermittently, hence she was loaded with Keppra by the neurologist, and neurological evaluation is pending. Upon my evaluation, I felt the patient must have sustained a significant anoxic brain injury touched bases on this with her mother at bedside, but I felt it would be best to determine the severity of her oxygen brain injury over the next 72 hours. And she is yet to be seen by neurology on consultation. Recommended empiric antibiotics for aspiration pneumonia, patient is now on GI and DVT prophylaxis, and repeat CT of the brain this morning showed no evidence of acute process involving the brain. Patient was reevaluated today on 07/19/2016, no change whatsoever in her overall neurological status, patient was seen by the neurologist, and more seizure medications were added, however she seemed to respond much better with the higher dose of propofol. Today the patient still on mechanical ventilation, she seems to be a bit tachycardic, and blood pressure is elevated, hence I recommended Dilaudid 1 mg IV push every 4 hours as needed. That seems to help quite well for her tachycardia and her elevated blood pressure. Patient remains unresponsive to any painful stimuli, her eyes remain deviated upwards. All her labs were reviewed including ABG, and they seem to be relatively unremarkable. FiO2 was decreased down to 35%. Chest x-ray is showing significant improvement in her perihilar infiltrates. Patient remains on antibiotics for presumptive aspiration pneumonia. Objective - Vital Signs Vital signs: Vital Signs Temp 99.9 F H 07/19/16 08:00 Pulse 124 H 07/19/16 11:00 Resp 16 07/19/16 11:00 BP 113/60 07/19/16 11:00 Pulse Ox 100 07/19/16 11:00 Intake & Output 07/18/16 07/19/16 07/19/16 18:59 06:59 18:59 Intake Total 0178.634 7890.885 794.649 Output Total 1250 1265 650 Balance 519.917 -44.115 144.649 Weight 54.4 kg 57.3 kg Intake: IV 56 146 35 0.9 normal saline at KVO 20 110 20 0.9 normal saline for 33 3 12 pressure Pressure bag 3 33 3 Intake, IV Titration 4109.247 3457.885 598.649 Amount ACETAMINOPHEN IV (For NPO 100 ) 1,000 mg In Empty Bag 1 bag @ 400 mls/hr IVPB Q6H PRN Rx#:[id number] Dextrose 5%-0.45% NaCl 1, 1050 700 400 000 ml @ 100 mls/hr IV . Q10H JADA Rx#:[id number] Lacosamide IV 150 mg In 65 Sodium Chloride 0.9% 50 ml @ 100 mls/hr IVPB BID JADA Rx#:[id number] Magnesium Sulfate-D5w Pmx 100 1 gm In Dextrose/Water 1 100ml.bag @ 100 mls/hr IVPB Q1H JADA Rx#: [id number] Piperacillin-Tazobactam 3 87.5 62.5 37.5 .375 gm In Dextrose/Water 1 50ml.bag @ 12.5 mls/hr IVPB Q8HR JADA Rx#: [id number] Propofol 500 mg In Empty 16.909 Bag 1 bag @ Titrate IV . Q0M JADA Rx#:[id number] Propofol 500 mg In Empty 9.508 97.385 11.149 Bag 1 bag @ Titrate IV . Q0M JADA Rx#:[id number] Valproate Sodium 500 mg 50 In Sodium Chloride 0.9% 50 ml @ 50 mls/hr IVPB Q6HR [facility]ADA Rx#:[id number] Valproate Sodium 820 mg 50 In Sodium Chloride 0.9% 50 ml @ 50 mls/hr IVPB ONCE ONE Rx#:[id number] levETIRAcetam IV 1,000 mg 110 100 In Sodium Chloride 0.9% 100 ml @ 400 mls/hr IVPB Q12HR [facility] Rx#:[id number] levETIRAcetam IV 750 mg 150 In Sodium Chloride 0.9% 100 ml @ 400 mls/hr IVPB Q12HR [facility] Rx#:[id number] Tube Feeding 120 40 141 Other 30 20 Output: Gastric Drainage 325 Urine 925 1265 650 Other: Voiding Method Indwelling Catheter Indwelling Catheter Indwelling Catheter ABP, PAP, CO, CI - Last Documented Arterial Blood Pressure 165/72 - Exam General appearance: obtunded, unresponsive on mechanical ventilation endotracheal tube is intact, nasogastric tube is intact. Head exam: Present: atraumatic, normocephalic, normal inspection Eye exam: Upward deviation of both eyes was noted ENT exam: Present: normal exam, mucous membranes moist Neck exam: Present: normal inspection. Absent: tenderness, meningismus, lymphadenopathy Respiratory exam: Minimal crackles at the bases, no rhonchi, no wheezes Cardiovascular Exam: Present: normal rhythm, tachycardia, normal heart sounds. Absent: systolic murmur, diastolic murmur, rubs, gallop, clicks GI/Abdominal exam: Present: soft, normal bowel sounds. Absent: distended, tenderness, guarding, rebound, rigid Extremities exam: Present: normal inspection, full ROM, normal capillary refill. Absent: tenderness, pedal edema, joint swelling, calf tenderness Back exam: Present: normal inspection Neurological exam: Present: altered, patient is unresponsive to any stimuli, upward deviation of both eyes noted pupils are both reactive no response to any painful stimuli. Skin exam: No cyanosis noted. And no clubbing. - Labs CBC & Chem 7: 07/19/16 04:30 07/19/16 04:30 Labs: Abnormal Lab Results - Last 24 Hours (Table) 07/18/16 07/18/16 07/18/16 Range/Units 03:30 12:29 13:20 WBC (3.8-10.6) k/uL ABG Lactic Acid (0.5-1.6) mmol/L Creatinine (0.52-1.04) mg/dL Glucose (74-99) mg/dL POC Glucose (mg/dL) 149 H (75-99) mg/dL Calcium (8.4-10.2) mg/dL Magnesium (1.6-2.3) mg/dL AST (14-36) U/L ALT (9-52) U/L Troponin I 1.600 H* (0.000-0.034) ng/mL Total Protein (6.3-8.2) g/dL Albumin (3.5-5.0) g/dL U Benzodiazepines Scrn Positive H (Negative) ng/mL 07/19/16 07/19/16 07/19/16 Range/Units 00:41 04:30 04:30 WBC 10.9 H (3.8-10.6) k/uL ABG Lactic Acid (0.5-1.6) mmol/L Creatinine 0.50 L (0.52-1.04) mg/dL Glucose 109 H (74-99) mg/dL POC Glucose (mg/dL) 117 H (75-99) mg/dL Calcium 8.2 L (8.4-10.2) mg/dL Magnesium 2.4 H (1.6-2.3) mg/dL AST 64 H (14-36) U/L ALT 65 H (9-52) U/L Troponin I (0.000-0.034) ng/mL Total Protein 5.5 L (6.3-8.2) g/dL Albumin 2.8 L (3.5-5.0) g/dL U Benzodiazepines Scrn (Negative) ng/mL 07/19/16 07/19/16 Range/Units 04:30 06:16 WBC (3.8-10.6) k/uL ABG Lactic Acid 1.9 H (0.5-1.6) mmol/L Creatinine (0.52-1.04) mg/dL Glucose (74-99) mg/dL POC Glucose (mg/dL) 116 H (75-99) mg/dL Calcium (8.4-10.2) mg/dL Magnesium (1.6-2.3) mg/dL AST (14-36) U/L ALT (9-52) U/L Troponin I (0.000-0.034) ng/mL Total Protein (6.3-8.2) g/dL Albumin (3.5-5.0) g/dL U Benzodiazepines Scrn (Negative) ng/mL Microbiology - Last 24 Hours (Table) 07/18/16 04:50 Blood Culture - Preliminary Blood No Growth after 24 hours 07/18/16 05:04 Blood Culture - Preliminary Blood No Growth after 24 hours 07/18/16 05:48 Gram Stain - Preliminary Sputum Sputum Culture - Preliminary 07/18/16 03:30 Urine Culture - Preliminary Urine,Catheterized Assessment and Plan Plan: Impression: 1 status post acute cardiopulmonary arrest, most likely secondary to heroin overdose. Although her drug screen was negative, and no response was noted to Narcan upon initial evaluation by EMS. Apparently her boyfriend stated to the nurses that she used some sort of narcotic that could not be detected from normal blood screening. 2 acute episode of ventricular fibrillation requiring cardioversion by EMS in the field. 3 acute bilateral aspiration pneumonia improving on chest x-ray today 4 acute respiratory failure secondary to above. Requiring intubation and mechanical ventilation. 5 history of IV drug abuse and alcohol abuse 6 strongly suspect severe anoxic brain injury. Recommendation: Continue present supportive care measures including mechanical ventilation, GI and DVT prophylaxis, seizure precautions and she is presently on Keppra, and valproic acid nutritional support, empiric antibiotics for aspiration pneumonia, neurological consultation which is pending, and over the next 72 hours, we'll discuss with the family again her neurological recovery if any. Prognosis is definitely poor and guarded. We will continue to follow. Discussed her condition with her mother at bedside again today, the critical care time is 45 minutes. Time with Patient: Greater than 30
[2016-07-19] MEDS: ACETAMINOPHEN IV (For NPO) 1,000 MG in EMPTY BAG 1 BAG IVPB PRN (12:28)
[2016-07-19 12:30] LABS: ABG PH 7.39 (7.35-7.45)
[2016-07-19 12:31] LABS: ABG Base Excess 0.2 mmol/L; ABG HCO3 25 mmol/L (21-25); ABG PCO2 42 mmHg (35-45); ABG PO2 135 mmHg (83-108); ABG TCO2 26 mmol/L (19-24)
--- NOTE | 2016-07-19 12:49 | PN ---
This 20-year-old lady is admitted to hospital following a cardiac arrest in the field, probably suffered hypoxic encephalopathy, has had seizures and is being treated for the same. I did troponin on her that was elevated at 1.6, probably related to the cardiac arrest and resuscitation. There is no spontaneous activity. She is sedated and is receiving seizure medications. She had an echo. I am waiting for the results. On exam, she is intubated on vent, sedated. Heart rate is 120 beats per minute, blood pressure is 113/60, respiratory rate is 14. Chest exam reveals diminished air entry at the bases. Heart exam reveals first and second heart sounds. No gallop. Exam of the extremities did not reveal any edema. Peripheral pulses are felt. ASSESSMENT: 1. Status post cardiac arrest. 2. Possible hypoxic encephalopathy. 3. Seizures. PLAN: Continue with the supportive care, agree with the dose of labetalol for hypertension. I am going to review the echo.
[2016-07-19] MEDS: HYDROmorphone 1 MG/ML 1 ML SYRINGE IVP PRN ×2 (12:52→23:56)
--- NOTE | 2016-07-19 12:57 | CONS ---
DATE OF CONSULTATION: 07/18/2016 CHIEF COMPLAINT: Drug overdose and seizure activity. HISTORY OF PRESENT ILLNESS: A 20-year-old female who is being evaluated by the Neurology Service per the request of Dr. Gutierrez for the above-mentioned complaints. The patient was brought into the [facility] for an IV drug overdose. According to the patient's mother who is at bedside at the time of my evaluation, the patient was last seen by her boyfriend and when he left the house for approximately 10 to 15 minutes, he returned and found the patient unresponsive at home. The patient has a long-standing history of IV drug abuse and was actually recently an inpatient at [facility] where she had stayed for 15 days. According to her mother, the patient's boyfriend told her that she, "Shot up some heroin." Her urine drug screen was negative for heroin, so it is unclear what the patient used. A comprehensive urine drug screen has been sent out but the results are pending. When the patient was found to be unresponsive at home, her boyfriend did start CPR and 911 was called. The patient was intubated and defibrillated on the scene. Estimated down time was about [address] scan of the brain was done, which was normal yesterday. A repeat CT scan of the brain was done this morning, which again showed no acute intracranial abnormalities. In the intensive care unit, the patient was noticed to be having some twitching. She was initially started on Keppra IV loading dose and a maintenance dose of 750 mg every 12 hours. I was contacted by the nursing staff as the patient was still having some twitching. I did start her on IV Depakote with a loading dose of 15 mg/kg and a maintenance dose of 500 mg IV every 8 hours. I did review her EEG, which did show sharp wave activity and recurrent generalized epileptiform discharges. At the time of my evaluation, the patient continues to be unresponsive on the ventilator. She is having some twitching in her eyelids and in her extremities that recur every several seconds. I did review her urine drug screen, which was positive for benzodiazepine and marijuana. Her urinalysis and CBC were normal. Her comprehensive metabolic profile showed mild hypocalcemia at 7.2 with elevated liver enzymes with an AST of 79 and an ALT of 87. Her cardiac enzymes showed elevated troponin I at 1.6. Cardiology is following the patient. PAST MEDICAL HISTORY: History of IV drug abuse, hepatitis C, history of appendectomy and adenoidectomy, history of ear tube placements. The patient also has history of depression, bipolar disorder and anxiety disorder. SOCIAL HISTORY: Positive for IV drug abuse and tobacco use. FAMILY HISTORY: Positive for drug abuse. HOME MEDICATIONS: Reviewed in the chart. ALLERGIES: No known drug allergies. REVIEW OF SYSTEMS: Unable to obtain as the patient is unresponsive and intubated. PHYSICAL EXAM: Vital signs show a temperature of 100.4, pulse 128, respiration 18, blood pressure 127/63. GENERAL APPEARANCE: The patient is a well-developed female who is intubated and unresponsive. HEENT: Normocephalic, atraumatic, no facial asymmetry is seen. Endotracheal tube is intact. Neck is supple with no masses felt. CARDIOVASCULAR: Regular rate and rhythm. ABDOMEN: Nontender, nondistended. EXTREMITIES: Showed no edema or clubbing. NEUROLOGICAL EXAM: The patient is unresponsive to verbal or painful stimuli. Recurrent facial twitching and extremity twitching is seen. Pupils are sluggish but reactive to light. Corneal reflex is absent. Oculocephalic reflex is intact. No ankle clonus is seen. Deep tendon reflexes were hyporeflexive and symmetrical. No obvious facial asymmetry is seen on cranial nerve testing. IMPRESSION: 1. Status epilepticus. 2. IV drug overdose. 3. Acute toxic encephalopathy. 4. Anoxic brain injury. 5. History of drug abuse. RECOMMENDATION: Given the patient's current history and clinical findings, there is significant concern for anoxic brain injury. She is having recurrent twitching and her EEG prior to the Depakote IV loading dose did show recurrent epileptiform discharges. I will increase her Keppra dose to 1000 mg every 12 hours and I will increase her Depakote dose to 500 mg every 6 hours. I will order a serum Depakote level. I will also start the patient on Vimpat 150 mg every 12 hours IV. A repeat EEG will be done in the morning. I will also order a serum drug test as the patient did abuse some form of IV drug but this was not heroin as her urine drug screen was negative for this. I had a lengthy discussion with the patient's mother who was at bedside and she was informed that the prognosis is quite guarded at this time. At this time, her current unresponsiveness could be due to her status epilepticus but this could also be due to the severity of the anoxic brain injury. Continue neuro checks. I will continue to follow with you. Further recommendations to follow. Thank you for allowing me to participate in the care of your patient. If you have any questions, please feel free to contact me.
--- NOTE | 2016-07-19 14:32 | EEG ---
DATE OF SERVICE: 07/18/2016 INDICATIONS FOR EXAMINATION: Unresponsiveness and possible seizures. AGE: 20Y DESCRIPTION OF THE PROCEDURE: This EEG was performed using a 21-channel digital electroencephalograph, following the international 10 to 20 system. DESCRIPTION OF THE RECORDING: From the beginning of the tracing, and with the patient's eyes closed, the background rhythm was mostly consisting of 6 to 7 Hz theta frequency in the posterior occipital leads. Recurrent dysregulation is seen with occasional 3 Hz spike and wave activity. Sharp wave activity is also noticed. Photic stimulation was performed with a recurrence of sharp wave activities seen. Hyperventilation was not performed. Her EKG lead showed a tachycardic rate with a normal rhythm. INTERPRETATION: This awake EEG is abnormal due to presence of recurrent epileptiform discharges as mentioned above. No obvious asymmetry is seen. Clinical correlation is recommended.
--- NOTE | 2016-07-19 17:20 | P.PN ---
Subjective Principal diagnosis: Status epilepticus, drug overdose, anoxic brain injury Is a 20-year-old female continuing to be evaluated by the neurology service. She was brought in for suspected IV drug overdose. She was found unresponsive by a friend who started CPR. Her downtime was unknown. She was intubated and defibrillated on the scene. An estimation of downtime was only [address] was normal follow-up CT showed no acute intracranial abnormalities. There was some twitching that is felt to be persistent seizure activity. She was started on IV Keppra and Depakote. Her EEG did show sharp waves with recurrent generalized epileptiform discharges. She continues to be on a ventilator and unresponsive. Nurses report there is little to no spontaneous movement except some eye blinking motions. Objective - Vital Signs Vital signs: Vital Signs Temp 99.1 F 07/19/16 16:00 Pulse 110 H 07/19/16 16:30 Resp 16 07/19/16 16:30 BP 108/51 07/19/16 16:30 Pulse Ox 98 07/19/16 16:30 Intake & Output 07/18/16 07/19/16 07/19/16 18:59 06:59 18:59 Intake Total 8908.559 5528.885 1781.149 Output Total 1250 1265 935 Balance 519.917 -44.115 846.149 Weight 54.4 kg 57.3 kg Intake: IV 56 146 90 0.9 normal saline at KVO 20 110 60 0.9 normal saline for 33 3 27 pressure Pressure bag 3 33 3 Intake, IV Titration 2856.894 8629.885 1211.149 Amount ACETAMINOPHEN IV (For NPO 100 100 ) 1,000 mg In Empty Bag 1 bag @ 400 mls/hr IVPB Q6H PRN Rx#:[id number] Dextrose 5%-0.45% NaCl 1, 1050 700 800 000 ml @ 100 mls/hr IV . Q10H [facility] Rx#:[id number] Lacosamide IV 150 mg In 65 50 Sodium Chloride 0.9% 50 ml @ 100 mls/hr IVPB BID [facility] Rx#:[id number] Magnesium Sulfate-D5w Pmx 100 1 gm In Dextrose/Water 1 100ml.bag @ 100 mls/hr IVPB Q1H [facility] Rx#: [id number] Piperacillin-Tazobactam 3 87.5 62.5 50.0 .375 gm In Dextrose/Water 1 50ml.bag @ 12.5 mls/hr IVPB Q8HR [facility] Rx#: [id number] Propofol 500 mg In Empty 16.909 Bag 1 bag @ Titrate IV . Q0M [facility] Rx#:[id number] Propofol 500 mg In Empty 9.508 97.385 61.149 Bag 1 bag @ Titrate IV . Q0M [facility] Rx#:[id number] Valproate Sodium 500 mg 50 In Sodium Chloride 0.9% 50 ml @ 50 mls/hr IVPB Q6HR [facility] Rx#:[id number] Valproate Sodium 820 mg 50 In Sodium Chloride 0.9% 50 ml @ 50 mls/hr IVPB ONCE ONE Rx#:[id number] levETIRAcetam IV 1,000 mg 110 100 In Sodium Chloride 0.9% 100 ml @ 400 mls/hr IVPB Q12HR [facility] Rx#:[id number] levETIRAcetam IV 750 mg 150 In Sodium Chloride 0.9% 100 ml @ 400 mls/hr IVPB Q12HR [facility] Rx#:[id number] Tube Feeding 120 40 400 Other 30 80 Output: Gastric Drainage 325 Urine 925 1265 935 Other: Voiding Method Indwelling Catheter Indwelling Catheter Indwelling Catheter ABP, PAP, CO, CI - Last Documented Arterial Blood Pressure 140/60 - Exam The patient is intubated and unresponsive in her ICU bed. - Constitutional General appearance: Present: thin - EENT EENT Comment(s): Minimally responsive pupils. - Cardiovascular Rhythm: regular - Neurologic Neurologic Comment(s): The patient is intubated and unresponsive. There is no response to painful stimuli. Gag reflex could not be elicited, but nursing staff says that she occasionally does have a gag and cough reflex. Her eyes blink and response to light tactile stimuli. No significant response to Babinski. Corneal reflexes are intact. There is no ocular tracking. - Labs CBC & Chem 7: 07/19/16 04:30 07/19/16 04:30 Labs: Abnormal Lab Results - Last 24 Hours (Table) 07/18/16 07/19/16 07/19/16 Range/Units 03:30 00:41 04:30 WBC 10.9 H (3.8-10.6) k/uL ABG pO2 (83-108) mmHg ABG Total CO2 (19-24) mmol/L ABG O2 Saturation (94-97) % ABG Lactic Acid (0.5-1.6) mmol/L Creatinine (0.52-1.04) mg/dL Glucose (74-99) mg/dL POC Glucose (mg/dL) 117 H (75-99) mg/dL Calcium (8.4-10.2) mg/dL Magnesium (1.6-2.3) mg/dL AST (14-36) U/L ALT (9-52) U/L Total Protein (6.3-8.2) g/dL Albumin (3.5-5.0) g/dL U Benzodiazepines Scrn Positive H (Negative) ng/mL 07/19/16 07/19/16 07/19/16 Range/Units 04:30 04:30 06:16 WBC (3.8-10.6) k/uL ABG pO2 (83-108) mmHg ABG Total CO2 (19-24) mmol/L ABG O2 Saturation (94-97) % ABG Lactic Acid 1.9 H (0.5-1.6) mmol/L Creatinine 0.50 L (0.52-1.04) mg/dL Glucose 109 H (74-99) mg/dL POC Glucose (mg/dL) 116 H (75-99) mg/dL Calcium 8.2 L (8.4-10.2) mg/dL Magnesium 2.4 H (1.6-2.3) mg/dL AST 64 H (14-36) U/L ALT 65 H (9-52) U/L Total Protein 5.5 L (6.3-8.2) g/dL Albumin 2.8 L (3.5-5.0) g/dL U Benzodiazepines Scrn (Negative) ng/mL 07/19/16 07/19/16 Range/Units 09:00 12:02 WBC (3.8-10.6) k/uL ABG pO2 135 H (83-108) mmHg ABG Total CO2 26 H (19-24) mmol/L ABG O2 Saturation 99.0 H (94-97) % ABG Lactic Acid (0.5-1.6) mmol/L Creatinine (0.52-1.04) mg/dL Glucose (74-99) mg/dL POC Glucose (mg/dL) 115 H (75-99) mg/dL Calcium (8.4-10.2) mg/dL Magnesium (1.6-2.3) mg/dL AST (14-36) U/L ALT (9-52) U/L Total Protein (6.3-8.2) g/dL Albumin (3.5-5.0) g/dL U Benzodiazepines Scrn (Negative) ng/mL Microbiology - Last 24 Hours (Table) 07/18/16 03:30 Urine Culture - Final Urine,Catheterized 07/18/16 04:50 Blood Culture - Preliminary Blood No Growth after 24 hours 07/18/16 05:04 Blood Culture - Preliminary Blood No Growth after 24 hours Assessment and Plan (1) Anoxic brain injury Status: Acute (2) Toxic encephalopathy Status: Acute (3) Cardiopulmonary arrest Status: Acute (4) Drug overdose Status: Acute (5) Ventricular fibrillation Status: Acute Plan: We will continue her on her current doses of Keppra and Depakote IV. Vimpat has also been started. No seizure activity has been reported. Her prognosis continues to be poor continue neurological checks continue respiratory support we will continue to follow and make recommendations based on her EEG.
[2016-07-19 18:04] LABS: Glucose,Whole Blood 106 mg/dL (75-99)
[2016-07-19] MEDS: ARTIFICIAL TEARS OINTMENT 3.5 GM TUBE BOTH EYES PRN (20:38)
[2016-07-19 23:51] LABS: Glucose,Whole Blood 118 mg/dL (75-99)
[2016-07-20] MEDS: ACETAMINOPHEN IV (For NPO) 1,000 MG in EMPTY BAG 1 BAG IVPB PRN (02:17)
[2016-07-20] MEDS: DEXTROSE 5%-0.45% NACL 1,000 ML IV SCH ×3 (03:00→21:16)
[2016-07-20] MEDS: PROPOFOL 500 MG in EMPTY BAG 1 BAG IV SCH ×2 (03:00→08:50)
[2016-07-20] MEDS: IPRATROPIUM-ALBUTEROL 3 ML NEB INHALATION SCH ×6 (03:36→23:18)
[2016-07-20 03:50] LABS: ALT 46 U/L (9-52); AST 123 U/L (14-36); Alkaline Phosphatase 35 U/L (38-126); Anion Gap 8 mmol/L; Blood Urea Nitrogen 10 mg/dL (7-17); Calcium 8.2 mg/dL (8.4-10.2); Carbon Dioxide 26 mmol/L (22-30); Chloride 105 mmol/L (98-107); Glucose 125 mg/dL (74-99); Magnesium 1.7 mg/dL (1.6-2.3); Non-African American GFR(MDRD) >60 (>60 ml/min/1.73 sqM); Phosphorous 3.1 mg/dL (2.5-4.5); Potassium 4.1 mmol/L (3.5-5.1); Sodium 139 mmol/L (137-145); Total Bilirubin 0.6 mg/dL (0.2-1.3); Total Protein 5.3 g/dL (6.3-8.2)
[2016-07-20 03:57] LABS: CH 28.1; CHCM 32.4; HCT 33.2 % (34.0-46.0); HDW 2.41; MCH 28.8 pg (25.0-35.0); MCV 87.2 fL (80.0-100.0); Mean Platelet Volume 7.5; RBC 3.81 m/uL (3.80-5.40); RDW 12.8 % (11.5-15.5); WBC 9.6 k/uL (3.8-10.6)
[2016-07-20] MEDS: HYDROmorphone 1 MG/ML 1 ML SYRINGE IVP PRN ×5 (05:10→22:05)
[2016-07-20] MEDS: VALPROATE SODIUM 500 MG in SODIUM CHLORIDE 0.9% 50 ML IVPB SCH ×3 (05:10→17:41)
[2016-07-20 06:02] LABS: Glucose,Whole Blood 135 mg/dL (75-99)
[2016-07-20] MEDS: INSULIN LISPRO (humaLOG) 300 UNIT/3 ML VIAL SQ SCH ×3 (07:00→19:03)
[2016-07-20] MEDS: ARTIFICIAL TEARS OINTMENT 3.5 GM TUBE BOTH EYES PRN (07:03)
[2016-07-20] MEDS ORDERED: INFLUENZA VACCINE (3YR+) 60 MCG/0.5 ML SYRINGE IM ONE (07:10)
[2016-07-20] MEDS ORDERED: PNEUMOCOCCAL VACC-PNEUMOVAX 23 25 MCG/0.5 ML VIAL IM ONE (07:28)
--- NOTE | 2016-07-20 07:44 | XR ---
EXAMINATION TYPE: XR chest 1V portable DATE OF EXAM: 07/20/2016 6:56 AM COMPARISON: 07/19/2016 HISTORY: Tube placement TECHNIQUE: Single frontal view of the chest is obtained. FINDINGS: ET tube appears low in position at the level of the mejia. Perihilar changes are stable. No pleural effusion or pneumothorax. No consolidation. IMPRESSION: 1. ET tube somewhat low in position at the level of the mejia. Report called to ICU nurse. 2. Stable perihilar predominantly right-sided findings which are nonspecific correlate clinically.
[2016-07-20 08:31] LABS: ABG Base Excess 1.8 mmol/L; ABG HCO3 26 mmol/L (21-25); ABG PCO2 39 mmHg (35-45); ABG PH 7.43 (7.35-7.45); ABG PO2 104 mmHg (83-108); ABG TCO2 27 mmol/L (19-24)
[2016-07-20] MEDS: LACOSAMIDE IV 150 MG in SODIUM CHLORIDE 0.9% 50 ML IVPB SCH ×2 (08:55→21:13)
[2016-07-20] MEDS: levETIRAcetam IV 1,000 MG in SODIUM CHLORIDE 0.9% 100 ML IVPB SCH ×2 (08:58→21:14)
[2016-07-20] MEDS: PIPERACILLIN-TAZOBACTAM 3.375 GM in DEXTROSE/WATER 1 50ML.BAG IVPB SCH ×2 (08:58→16:51)
[2016-07-20] MEDS: HEPARIN SODIUM,PORCINE 5,000 UNIT/ML 1 ML VIAL SQ SCH ×2 (08:58→16:51)
[2016-07-20] MEDS: CHLORHEXIDINE GLUCONATE 15 ML CUP MUCOUS MEM SCH ×2 (08:58→21:16)
[2016-07-20] MEDS: PANTOPRAZOLE 40 MG/10 ML VIAL IV SCH (08:59)
--- NOTE | 2016-07-20 09:28 | PN ---
DATE OF SERVICE: 07/19/2016 INTERVAL HISTORY: Ms. Figueroa is a 20-year-old female with known history of polysubstance abuse, was brought to the hospital by her boyfriend after the patient suffered a sudden collapse, and the patient was found to have ventricular fibrillation and cardiopulmonary arrest in route and had cardioversion. Otherwise, patient has acute respiratory failure secondary to possibly heroin overdose but did not respond to Narcan. Patient is currently intubated and sedated. Otherwise, patient was found to have an anoxic brain injury, currently nonresponse. Patient also having myoclonic seizure for which patient is on seizure prophylactic. Patient is also on antibiotics for possible aspiration pneumonia. Patient is being followed Neurology, Pulmonary and Cardiology at this time. Repeat neurology today. Otherwise, complete review of systems could not be obtained from the patient. Current medications include Tylenol IV, DuoNeb, Peridex, Dextrose D5 half-normal saline, heparin subQ, Dilaudid, Humalog, Lacosamide, Keppra, potassium protocol, Narcan, norepinephrine, Protonix, Zosyn, propofol and valproic acid. PHYSICAL EXAMINATION: A 20-year-old female, lying in bed, currently sedated and intubated. HEENT: Atraumatic, normocephalic. Neck is supple. No JVD. Eyes are deviated upwards. LUNGS: Bilateral air entry is present and rhonchi and crackles are positive. No wheezing. CVS: S1, S2 heard. No murmurs, no gallop. Abdomen is soft. Bowel sounds are present. Abdomen is slightly distended. EXTREMITIES: No edema. Pulses are palpable bilaterally. No clubbing or cyanosis. PSYCHIATRIC: ( ) NEUROLOGIC: Patient is unresponsive to verbal or painful stimuli. SKIN: No rash or skin lesions. LABORATORY DATA: WBC 10.9, hemoglobin 12.2, platelets 231, lactic acid 1.9. Sodium 141, potassium 4.2, chloride 107, bicarb is 26. BUN 9, creatinine 0.5, calcium 8.2, phosphorus 3.6, magnesium 2.4, AST 64, ALT 65, total protein 5.5, albumin is 2.8. ABGs showed pH of 7.39, pCO2 of 42, pO2 of 135. IMPRESSION: 1. Acute cardiopulmonary arrest, mostly secondary to drug overdose. 2. Acute drug overdose, did not respond to Narcan. Patient was using narcotic not detected by regular blood test as per her boyfriend on admission. 3. Acute hypoxic respiratory failure secondary to drug overdose, currently sedated and intubated. 4. Episode of ventricular tachycardia, status post cardioversion. 5. Bilateral aspiration pneumonia. 6. Polysubstance abuse. 7. Alcohol abuse. 8. Myoclonic seizures. 9. Anoxic brain injury. DISCUSSION AND PLAN: patient will be continued on mechanical ventilation as per Pulmonary recommendations. Continue with the seizure prophylaxis and continue with the antibiotic in the form of Zosyn and follow up closely. Patient does have underlying anoxic brain injury. Neurology is following and repeat EEG was ordered today. Will continue the current management and the prognosis guarded. I discussed with her mother at bedside in detail. Will monitor prognosis over the next 72 hours and further recommendations based on the clinical course.
[2016-07-20 09:47] LABS: Serum Amphetamine Negative; Serum Barbiturates Negative; Serum Benzodiazepine Negative; Serum Cocaine Negative; Serum Methadone Negative; Serum Opiates Negative; Serum Phencyclidine Negative; Serum Propoxyphene Negative; Serum THC (Cannabis) Negative
[2016-07-20] MEDS: MAGNESIUM SULFATE-D5W PMX 1 GM in DEXTROSE/WATER 1 100ML.BAG IVPB SCH ×2 (10:54→12:13)
--- NOTE | 2016-07-20 11:20 | ECHOF ---
Referral Reason:cardiopulmonary arrest/drug overdose MEASUREMENTS -------- HEIGHT: 152.4 cm WEIGHT: 54.0 kg BP: 152/74 RVIDd: 1.8 cm (< 3.3) IVSd: 0.7 cm (0.6 - 1.1) LVIDd: 3.0 cm (3.9 - 5.3) LVPWd: 0.8 cm (0.6 - 1.1) IVSs: 0.9 cm LVIDs: 2.4 cm LVPWs: 0.8 cm Ao Diam: 2.3 cm (2.0 - 3.7) AV Cusp: 1.6 cm (1.5 - 2.6) LA Diam: 1.7 cm (2.7 - 3.8) MV EXCURSION: 20.043 mm (> 18.000) MV EF SLOPE: 95 mm/s (70 - 150) EPSS: 0.3 cm MV E Silas: 0.89 m/s MV DecT: 130 ms MV A Silas: 0.87 m/s MV E/A Ratio: 1.02 RAP: 5.00 mmHg RVSP: 20.05 mmHg FINDINGS -------- Resting tachycardia (HR>100bpm). This was a technically adequate study. LV size, wall thickness and systolic function are normal, with an EF greater than 55%. The right ventricle is normal in size. The left atrial size is normal. The right atrial size is normal. The aortic valve is trileaflet, and appears structurally normal. No aortic stenosis or regurgitation. The mitral valve is normal. Mild mitral regurgitation is present. Mild tricuspid regurgitation present. There is no evidence of pulmonary hypertension. The right ventricular systolic pressure, as measured by Doppler, is 20.05mmHg. There is no pulmonic regurgitation present. The aortic root size is normal. There is no pericardial effusion. CONCLUSIONS -------- 1. This was a technically adequate study. 2. LV size, wall thickness and systolic function are normal, with an EF greater than 55%. 3. The left atrial size is normal. 4. Mild mitral regurgitation is present. 5. Mild tricuspid regurgitation present. 6. There is no evidence of pulmonary hypertension. 7. There is no pulmonic regurgitation present. COMMISSIONS COORDINATOR: Ginette Garcia RDCS
[2016-07-20 11:58] LABS: Glucose,Whole Blood 122 mg/dL (75-99)
--- NOTE | 2016-07-20 12:12 | EEG ---
DATE OF SERVICE: 07/19/2016 REASON FOR TESTING: Seizures and unresponsiveness. AGE: 20Y DESCRIPTION OF THE PROCEDURE: This EEG was performed using a 21-channel digital electroencephalograph, following the international 10 - 20 system. DESCRIPTION OF THE RECORDING: From the beginning of the tracing, and with the patient's eyes closed, the background rhythm was mostly consisting of 6 Hz theta frequency in the posterior occipital leads. No obvious asymmetry is seen, except for lead artifacts mostly in the right temporal region. Photic stimulation was performed with no driving response seen. No pathological waves were elicited. Hyperventilation was not performed. No epileptiform discharges were seen. This EEG is improved when compared to the 07/18/2016 study. INTERPRETATION: This awake EEG shows evidence of mild encephalopathy. No generalized epileptiform discharges were seen. This EEG is significantly improved when compared to her 07/18/2016 study. The absence of epileptiform discharges does not rule out the diagnosis of epilepsy, therefore, clinical correlation is recommended.
--- NOTE | 2016-07-20 13:02 | P.PN ---
Subjective Principal diagnosis: Acute respiratory failure secondary to cardiopulmonary arrest, anoxic brain injury This is a 20-year-old female with history of IV drug abuse, alcohol abuse, patient was recently released from a rehab facility and while at her boyfriend's , patient apparently suffered from a sudden collapse. EMS arrived, patient was found to have an empty needle in her arm, patient was noted to have dilated pupils, she was unresponsive, and while EMS was at the site, patient had an episode of V. tach during the code. Down time must have been at least over 10 minutes according to her mother. In the meantime the patient was intubated, defibrillated, cardioverted, and brought into the ER being ventilated. Upon arrival she was in sinus tachycardia, and she was unresponsive. Workup in the ER included a CT of the brain which was unremarkable. Drug screen was negative. CT of the chest showed bilateral pneumonia this was also noted on the chest x-ray. Apparently the findings are consistent with possible aspiration. Upon my evaluation in the ICU, patient is noted to be unresponsive to any stimuli, there is upward deviation of both eyes patient is having upper muscle jerking intermittently, hence she was loaded with Keppra by the neurologist, and neurological evaluation is pending. Upon my evaluation, I felt the patient must have sustained a significant anoxic brain injury touched bases on this with her mother at bedside, but I felt it would be best to determine the severity of her oxygen brain injury over the next 72 hours. And she is yet to be seen by neurology on consultation. Recommended empiric antibiotics for aspiration pneumonia, patient is now on GI and DVT prophylaxis, and repeat CT of the brain this morning showed no evidence of acute process involving the brain. Patient was reevaluated today on 07/19/2016, no change whatsoever in her overall neurological status, patient was seen by the neurologist, and more seizure medications were added, however she seemed to respond much better with the higher dose of propofol. Today the patient still on mechanical ventilation, she seems to be a bit tachycardic, and blood pressure is elevated, hence I recommended Dilaudid 1 mg IV push every 4 hours as needed. That seems to help quite well for her tachycardia and her elevated blood pressure. Patient remains unresponsive to any painful stimuli, her eyes remain deviated upwards. All her labs were reviewed including ABG, and they seem to be relatively unremarkable. FiO2 was decreased down to 35%. Chest x-ray is showing significant improvement in her perihilar infiltrates. Patient remains on antibiotics for presumptive aspiration pneumonia. Patient was reevaluated today on 07/20/2016, remains on mechanical ventilation, assist control mode of mechanical ventilation, overall neurological status is about the same. Continues to have upward deviation of both eyes, no responses to any verbal or painful stimuli whatsoever. Patient was initially admitted after she injected a dose of elephant tranquilizer possibly carfentanil, this has been associated with at least 19 deaths in the [facility]. Obviously this could not be picked up on routine blood tests for opiates testing. At any rate patient apparently sustained a significant brain injury and no major changes noted neurologically over the last 48 hours since admission. Chest x-ray was reviewed, ABG was reviewed, all labs were reviewed, and no major abnormality needs to be addressed at this point. Today I instructed the nurses to hold propofol, and assess if there is any clinical response whatsoever. Objective - Vital Signs Vital signs: Vital Signs Temp 97.4 F L 07/20/16 08:00 Pulse 102 H 07/20/16 12:27 Resp 15 07/20/16 11:00 BP 130/71 07/20/16 11:00 Pulse Ox 97 07/20/16 11:00 Intake & Output 07/19/16 07/20/16 07/20/16 18:59 06:59 18:59 Intake Total 2086.149 2345.199 851.033 Output Total 1020 702 200 Balance 6420.988 2428.199 651.033 Weight 55.4 kg Intake: IV 96 119 52 0.9 normal saline at KVO 60 80 40 0.9 normal saline for 33 3 pressure Pressure bag 3 36 12 Intake, IV Titration 8603.587 2015.199 688.033 Amount ACETAMINOPHEN IV (For NPO 100 100 ) 1,000 mg In Empty Bag 1 bag @ 400 mls/hr IVPB Q6H [facility] Rx#:[id number] Dextrose 5%-0.45% NaCl 1, 1000 1125 400 000 ml @ 100 mls/hr IV . Q10H [facility] Rx#:[id number] Lacosamide IV 150 mg In 50 50 50 Sodium Chloride 0.9% 50 ml @ 100 mls/hr IVPB BID [facility] Rx#:[id number] Piperacillin-Tazobactam 3 75.0 62.5 50 .375 gm In Dextrose/Water 1 50ml.bag @ 12.5 mls/hr IVPB Q8HR [facility] Rx#: [id number] Propofol 500 mg In Empty 61.149 67.699 38.033 Bag 1 bag @ Titrate IV . Q0M [facility] Rx#:[id number] Valproate Sodium 500 mg 50 150 50 In Sodium Chloride 0.9% 50 ml @ 50 mls/hr IVPB Q6HR [facility] Rx#:[id number] levETIRAcetam IV 1,000 mg 100 100 100 In Sodium Chloride 0.9% 100 ml @ 400 mls/hr IVPB Q12HR [facility] Rx#:[id number] Tube Feeding 474 481 111 Other 80 90 Output: Urine 1020 702 200 Other: Voiding Method Indwelling Catheter Indwelling Catheter Indwelling Catheter ABP, PAP, CO, CI - Last Documented Arterial Blood Pressure 149/68 - Exam General appearance: unresponsive on mechanical ventilation endotracheal tube is intact, nasogastric tube is intact. Head exam: Present: atraumatic, normocephalic, normal inspection Eye exam: Upward deviation of both eyes was noted, pupils are both reactive to light ENT exam: Present: normal exam, mucous membranes moist Neck exam: Present: normal inspection. Absent: tenderness, meningismus, lymphadenopathy Respiratory exam: Minimal crackles at the bases, no rhonchi, no wheezes Cardiovascular Exam: Present: normal rhythm, tachycardia, normal heart sounds. Absent: systolic murmur, diastolic murmur, rubs, gallop, clicks GI/Abdominal exam: Present: soft, normal bowel sounds. Absent: distended, tenderness, guarding, rebound, rigid Extremities exam: Present: normal inspection, full ROM, normal capillary refill. Absent: tenderness, pedal edema, joint swelling, calf tenderness Back exam: Present: normal inspection Neurological exam: Present: altered, patient is unresponsive to any stimuli, upward deviation of both eyes noted pupils are both reactive no response to any painful stimuli. Skin exam: No cyanosis noted. And no clubbing. - Labs CBC & Chem 7: 07/20/16 03:30 07/20/16 03:30 Labs: Abnormal Lab Results - Last 24 Hours (Table) 07/19/16 07/19/16 07/20/16 Range/Units 18:03 23:49 03:30 Hgb 11.0 L (11.4-16.0) gm/dL Hct 33.2 L (34.0-46.0) % ABG HCO3 (21-25) mmol/L ABG Total CO2 (19-24) mmol/L ABG O2 Saturation (94-97) % ABG Lactic Acid (0.5-1.6) mmol/L Creatinine (0.52-1.04) mg/dL Glucose (74-99) mg/dL POC Glucose (mg/dL) 106 H 118 H (75-99) mg/dL Calcium (8.4-10.2) mg/dL AST (14-36) U/L Alkaline Phosphatase (38-126) U/L Total Protein (6.3-8.2) g/dL Albumin (3.5-5.0) g/dL 07/20/16 07/20/16 07/20/16 Range/Units 03:30 03:30 05:59 Hgb (11.4-16.0) gm/dL Hct (34.0-46.0) % ABG HCO3 (21-25) mmol/L ABG Total CO2 (19-24) mmol/L ABG O2 Saturation (94-97) % ABG Lactic Acid 1.7 H (0.5-1.6) mmol/L Creatinine 0.47 L (0.52-1.04) mg/dL Glucose 125 H (74-99) mg/dL POC Glucose (mg/dL) 135 H (75-99) mg/dL Calcium 8.2 L (8.4-10.2) mg/dL AST 123 H (14-36) U/L Alkaline Phosphatase 35 L (38-126) U/L Total Protein 5.3 L (6.3-8.2) g/dL Albumin 2.6 L (3.5-5.0) g/dL 07/20/16 07/20/16 Range/Units 08:25 11:55 Hgb (11.4-16.0) gm/dL Hct (34.0-46.0) % ABG HCO3 26 H (21-25) mmol/L ABG Total CO2 27 H (19-24) mmol/L ABG O2 Saturation 98.0 H (94-97) % ABG Lactic Acid (0.5-1.6) mmol/L Creatinine (0.52-1.04) mg/dL Glucose (74-99) mg/dL POC Glucose (mg/dL) 122 H (75-99) mg/dL Calcium (8.4-10.2) mg/dL AST (14-36) U/L Alkaline Phosphatase (38-126) U/L Total Protein (6.3-8.2) g/dL Albumin (3.5-5.0) g/dL Microbiology - Last 24 Hours (Table) 07/18/16 05:48 Gram Stain - Final Sputum Sputum Culture - Final 07/18/16 04:50 Blood Culture - Preliminary Blood No Growth after 48 hours 07/18/16 05:04 Blood Culture - Preliminary Blood No Growth after 48 hours 07/18/16 03:30 Urine Culture - Final Urine,Catheterized Assessment and Plan Plan: Impression: 1 status post acute cardiopulmonary arrest, most likely secondary to carfentanil (elephant tranquilizer) overdose. Although her drug screen was negative, and no response was noted to Narcan upon initial evaluation by EMS. Apparently her boyfriend stated to the nurses that is the narcotics that the patient overdosed on. 2 acute episode of ventricular fibrillation requiring cardioversion by EMS in the field. 3 acute bilateral aspiration pneumonia improving on chest x-ray today 4 acute respiratory failure secondary to above. Requiring intubation and mechanical ventilation. 5 history of IV drug abuse and alcohol abuse 6 strongly suspect severe anoxic brain injury. Recommendation: Continue present supportive care measures including mechanical ventilation, GI and DVT prophylaxis, seizure precautions and she is presently on Keppra, and valproic acid nutritional support, empiric antibiotics for aspiration pneumonia, neurological consultation which is pending, and over the next 72 hours, we'll discuss with the family again her neurological recovery if any. Prognosis is definitely poor and guarded. We will continue to follow. Discussed her condition with her mother at bedside again today, the critical care time is 35 minutes. Time with Patient: Greater than 30
--- NOTE | 2016-07-20 16:53 | P.PN ---
Subjective Principal diagnosis: Status epilepticus, drug overdose, anoxic brain injury Is a 20-year-old female continuing to be evaluated by the neurology service. She was brought in for suspected IV drug overdose. She was found unresponsive by a friend who started CPR. Her downtime was unknown. She was intubated and defibrillated on the scene. Initial CT was normal, follow-up CT showed no acute intracranial abnormalities. There was some twitching that was felt to be persistent seizure activity. She was started on IV Keppra and Depakote because her EEG did show sharp waves with recurrent generalized epileptiform discharges. Her repeat EEG showed no epileptiform waves. She continues to be on a ventilator and unresponsive. Nurses report there is no spontaneous movement except some eye blinking motions. Objective - Vital Signs Vital signs: Vital Signs Temp 97.4 F L 07/20/16 08:00 Pulse 111 H 07/20/16 16:43 Resp 23 07/20/16 16:00 BP 145/77 07/20/16 16:00 Pulse Ox 99 07/20/16 16:00 Intake & Output 07/19/16 07/20/16 07/20/16 18:59 06:59 18:59 Intake Total 2086.149 2345.199 1570.010 Output Total 1020 702 510 Balance 1569.856 8605.199 1060.010 Weight 55.4 kg 55.4 kg Intake: IV 96 119 117 0.9 normal saline at KVO 60 80 90 0.9 normal saline for 33 3 pressure Pressure bag 3 36 27 Intake, IV Titration 6203.614 1931.199 1194.010 Amount ACETAMINOPHEN IV (For NPO 100 100 ) 1,000 mg In Empty Bag 1 bag @ 400 mls/hr IVPB Q6H [facility] Rx#:[id number] Dextrose 5%-0.45% NaCl 1, 1000 1125 900 000 ml @ 100 mls/hr IV . Q10H [facility] Rx#:[id number] Lacosamide IV 150 mg In 50 50 50 Sodium Chloride 0.9% 50 ml @ 100 mls/hr IVPB BID [facility] Rx#:[id number] Piperacillin-Tazobactam 3 75.0 62.5 50 .375 gm In Dextrose/Water 1 50ml.bag @ 12.5 mls/hr IVPB Q8HR [facility] Rx#: [id number] Propofol 500 mg In Empty 61.149 67.699 44.010 Bag 1 bag @ Titrate IV . Q0M [facility] Rx#:[id number] Valproate Sodium 500 mg 50 150 50 In Sodium Chloride 0.9% 50 ml @ 50 mls/hr IVPB Q6HR [facility] Rx#:[id number] levETIRAcetam IV 1,000 mg 100 100 100 In Sodium Chloride 0.9% 100 ml @ 400 mls/hr IVPB Q12HR [facility] Rx#:[id number] Tube Feeding 474 481 259 Other 80 90 Output: Urine 1020 702 510 Other: Voiding Method Indwelling Catheter Indwelling Catheter Indwelling Catheter ABP, PAP, CO, CI - Last Documented Arterial Blood Pressure 149/68 - Constitutional General appearance: Present: thin - EENT EENT Comment(s): Unresponsive Eyes: Present: abnormal pupil - Cardiovascular Rhythm: regular - Neurologic Neurologic Comment(s): Minimal corneal reflexes present. No response to painful stimuli. No tracking of eye movements. No gag reflex. - Labs CBC & Chem 7: 07/20/16 03:30 07/20/16 03:30 Labs: Abnormal Lab Results - Last 24 Hours (Table) 07/19/16 07/19/16 07/20/16 Range/Units 18:03 23:49 03:30 Hgb 11.0 L (11.4-16.0) gm/dL Hct 33.2 L (34.0-46.0) % ABG HCO3 (21-25) mmol/L ABG Total CO2 (19-24) mmol/L ABG O2 Saturation (94-97) % ABG Lactic Acid (0.5-1.6) mmol/L Creatinine (0.52-1.04) mg/dL Glucose (74-99) mg/dL POC Glucose (mg/dL) 106 H 118 H (75-99) mg/dL Calcium (8.4-10.2) mg/dL AST (14-36) U/L Alkaline Phosphatase (38-126) U/L Total Protein (6.3-8.2) g/dL Albumin (3.5-5.0) g/dL 07/20/16 07/20/16 07/20/16 Range/Units 03:30 03:30 05:59 Hgb (11.4-16.0) gm/dL Hct (34.0-46.0) % ABG HCO3 (21-25) mmol/L ABG Total CO2 (19-24) mmol/L ABG O2 Saturation (94-97) % ABG Lactic Acid 1.7 H (0.5-1.6) mmol/L Creatinine 0.47 L (0.52-1.04) mg/dL Glucose 125 H (74-99) mg/dL POC Glucose (mg/dL) 135 H (75-99) mg/dL Calcium 8.2 L (8.4-10.2) mg/dL AST 123 H (14-36) U/L Alkaline Phosphatase 35 L (38-126) U/L Total Protein 5.3 L (6.3-8.2) g/dL Albumin 2.6 L (3.5-5.0) g/dL 07/20/16 07/20/16 Range/Units 08:25 11:55 Hgb (11.4-16.0) gm/dL Hct (34.0-46.0) % ABG HCO3 26 H (21-25) mmol/L ABG Total CO2 27 H (19-24) mmol/L ABG O2 Saturation 98.0 H (94-97) % ABG Lactic Acid (0.5-1.6) mmol/L Creatinine (0.52-1.04) mg/dL Glucose (74-99) mg/dL POC Glucose (mg/dL) 122 H (75-99) mg/dL Calcium (8.4-10.2) mg/dL AST (14-36) U/L Alkaline Phosphatase (38-126) U/L Total Protein (6.3-8.2) g/dL Albumin (3.5-5.0) g/dL Microbiology - Last 24 Hours (Table) 07/18/16 05:48 Gram Stain - Final Sputum Sputum Culture - Final 07/18/16 04:50 Blood Culture - Preliminary Blood No Growth after 48 hours 07/18/16 05:04 Blood Culture - Preliminary Blood No Growth after 48 hours 07/18/16 03:30 Urine Culture - Final Urine,Catheterized Assessment and Plan (1) Anoxic brain injury Status: Acute (2) Toxic encephalopathy Status: Acute (3) Cardiopulmonary arrest Status: Acute (4) Drug overdose Status: Acute (5) Ventricular fibrillation Status: Acute Plan: We will continue her on her current doses of Keppra and Depakote IV. Vimpat has also been started. No seizure activity has been reported. Her prognosis continues to be poor. Continue supportive measures. I did discuss the prognosis with patient's mother. I did inform her that she has made no neurological progress since her admission. In fact, she has regressed some since my last exam. No further neurological workup is needed.
[2016-07-20 18:06] LABS: Glucose,Whole Blood 149 mg/dL (75-99)
[2016-07-20 23:36] LABS: Glucose,Whole Blood 101 mg/dL (75-99)
[2016-07-21] MEDS: INSULIN LISPRO (humaLOG) 300 UNIT/3 ML VIAL SQ SCH ×4 (00:18→17:58)
[2016-07-21] MEDS: HEPARIN SODIUM,PORCINE 5,000 UNIT/ML 1 ML VIAL SQ SCH ×3 (00:19→17:57)
[2016-07-21] MEDS: PIPERACILLIN-TAZOBACTAM 3.375 GM in DEXTROSE/WATER 1 50ML.BAG IVPB SCH ×3 (00:56→17:57)
[2016-07-21] MEDS: VALPROATE SODIUM 500 MG in SODIUM CHLORIDE 0.9% 50 ML IVPB SCH ×4 (00:56→17:58)
[2016-07-21] MEDS: IPRATROPIUM-ALBUTEROL 3 ML NEB INHALATION SCH ×6 (03:17→23:09)
[2016-07-21] MEDS: HYDROmorphone 1 MG/ML 1 ML SYRINGE IVP PRN ×4 (03:55→20:30)
[2016-07-21 05:32] LABS: CH 28.6; CHCM 33.5; HCT 35.8 % (34.0-46.0); HDW 2.36; HGB 11.7 gm/dL (11.4-16.0); MCH 28.1 pg (25.0-35.0); MCHC 32.8 g/dL (31.0-37.0); MCV 85.9 fL (80.0-100.0); Mean Platelet Volume 8.1; RBC 4.16 m/uL (3.80-5.40); RDW 12.8 % (11.5-15.5); WBC 12.9 k/uL (3.8-10.6)
[2016-07-21 05:49] LABS: ALT 44 U/L (9-52); AST 108 U/L (14-36); Alkaline Phosphatase 54 U/L (38-126); Anion Gap 9 mmol/L; Blood Urea Nitrogen 11 mg/dL (7-17); Calcium 8.2 mg/dL (8.4-10.2); Carbon Dioxide 26 mmol/L (22-30); Chloride 100 mmol/L (98-107); Glucose 119 mg/dL (74-99); Magnesium 1.9 mg/dL (1.6-2.3); Non-African American GFR(MDRD) >60 (>60 ml/min/1.73 sqM); Phosphorous 3.6 mg/dL (2.5-4.5); Potassium 4.1 mmol/L (3.5-5.1); Sodium 135 mmol/L (137-145); Total Bilirubin 0.6 mg/dL (0.2-1.3); Total Protein 5.8 g/dL (6.3-8.2)
[2016-07-21] MEDS: DEXTROSE 5%-0.45% NACL 1,000 ML IV SCH ×2 (06:07→17:58)
--- NOTE | 2016-07-21 08:37 | XR ---
EXAMINATION TYPE: XR chest 1V portable DATE OF EXAM: 07/21/2016 6:52 AM COMPARISON: Prior chest x-ray June HISTORY: Intubated TECHNIQUE: Single frontal view of the chest is obtained. FINDINGS: There is been interval repositioning of the endotracheal tube is overlying appropriate pos ition. NG tube remains in place, there are overlying cardiac leads and defibrillator pad. There is no pneumothorax or pleural effusion. Cardiac mediastinal silhouette, pulmonary vascularity and ruth ann are stable. There may be some slight improvement in aeration. IMPRESSION: Essentially stable findings, there may be some perihilar increased density.
[2016-07-21] MEDS: CHLORHEXIDINE GLUCONATE 15 ML CUP MUCOUS MEM SCH ×2 (08:59→21:41)
[2016-07-21] MEDS: LACOSAMIDE IV 150 MG in SODIUM CHLORIDE 0.9% 50 ML IVPB SCH ×2 (08:59→21:42)
[2016-07-21] MEDS: PANTOPRAZOLE 40 MG/10 ML VIAL IV SCH (09:00)
[2016-07-21] MEDS: levETIRAcetam IV 1,000 MG in SODIUM CHLORIDE 0.9% 100 ML IVPB SCH ×2 (09:00→21:42)
--- NOTE | 2016-07-21 10:24 | PN ---
DATE OF SERVICE: 07/20/2016 INTERVAL HISTORY: Ms. Figueroa is 20-year-old female who was admitted to the hospital for cardiopulmonary arrest and drug overdose. Patient has acute hypoxic respiratory failure secondary to heroin overdose, but could not be detected in the UDS, only benzodiazepines. The patient is currently intubated. Patient does not respond to verbal or painful stimuli. Eyes are still up gaze and repeat EEG showed no epileptiform ( ). The patient is currently being treated with antibiotics for aspiration pneumonia as well as prophylactic medications. Neurology and Pulmonary are following the patient and no progress has been noted since her last examination. Complete review of systems could not be obtained from patient. CURRENT MEDICATIONS: Reviewed. PHYSICAL EXAMINATION: A 18-year-old female, currently sedated and intubated. HEENT: atraumatic, normocephalic. Neck is supple. Eyes are upward gaze. Patient does have deep venous thrombosis prophylaxis CVS: S1, S2 heard. No murmurs, no gallop. LUNGS: Bilateral air entry is present rhonchi positive. No wheezing, level and currently on mechanical ventilator. ABDOMEN: Soft. Bowel sounds are present. DISTRICT COURT ADMINISTRATOR: Currently sedated and intubated. Patient does have corneal reflex. CARDIOVASCULAR: S1 and S2 heard. No murmurs. No gallop. LUNGS: Bilateral air entry is present. Rhonchi positive. No wheezing. Nonlabored, currently on mechanical ventilator. ABDOMEN: Soft. Bowel sounds are present. DISTRICT COURT ADMINISTRATOR: Currently she is intubated. Patient does have upward gaze and patient does not respond to verbal or painful stimuli. EXTREMITIES: No edema. Pulses palpable bilaterally. SKIN: No rash or skin lesions. LABORATORY DATA: WBC 9.6, hemoglobin 11.0, platelets 199. Lactic acid 1.7. Sodium 139, potassium 4.1, chloride 105, bicarb is 26, BUN 10, creatinine 0.47, blood sugar is 125. Albumin 2.6. Alk phos 35. Chest x-ray today showed ET tube somewhat low in position at the level of mejia, which has been adjusted, stable perihilar, predominantly air findings which are nonspecific correlated clinically. IMPRESSION: 1. Anoxic encephalopathy due to cardiopulmonary arrest secondary to drug overdose. 2. Acute drug overdose, did not respond to Narcan. UDS showed only benzodiazepines. Patient has been using narcotic, not detected by regular urine test, as per her boyfriend on admission. 3. Acute hypoxic respiratory failure secondary to drug overdose and cardiopulmonary arrest, currently on mechanical ventilation. 4. Episode of ventricular tachycardia, status post cardioversion. 5. Bilateral aspiration pneumonia, mainly on the right side. 6. Polysubstance abuse. 7. Alcohol abuse. 8. Myoclonic jerks/ seizures. 9. Deep venous thrombosis prophylaxis. DISCUSSION AND PLAN: Patient has been on oxygen ( ) and has not responded favorably to painful stimuli. No progression in neurological status. Will continue with the current management and family has been notified. Will continue the current antibiotics and epileptic prophylactic medications. Prognosis poor. Further recommendations based on the clinical course.
[2016-07-21 10:30] VITALS: BMI 23.8
[2016-07-21 12:12] LABS: Glucose,Whole Blood 116 mg/dL (75-99)
--- NOTE | 2016-07-21 13:17 | P.PN ---
Subjective Principal diagnosis: Acute respiratory failure secondary to cardiopulmonary arrest, anoxic brain injury This is a 20-year-old female with history of IV drug abuse, alcohol abuse, patient was recently released from a rehab facility and while at her boyfriend's , patient apparently suffered from a sudden collapse. EMS arrived, patient was found to have an empty needle in her arm, patient was noted to have dilated pupils, she was unresponsive, and while EMS was at the site, patient had an episode of V. tach during the code. Down time must have been at least over 10 minutes according to her mother. In the meantime the patient was intubated, defibrillated, cardioverted, and brought into the ER being ventilated. Upon arrival she was in sinus tachycardia, and she was unresponsive. Workup in the ER included a CT of the brain which was unremarkable. Drug screen was negative. CT of the chest showed bilateral pneumonia this was also noted on the chest x-ray. Apparently the findings are consistent with possible aspiration. Upon my evaluation in the ICU, patient is noted to be unresponsive to any stimuli, there is upward deviation of both eyes patient is having upper muscle jerking intermittently, hence she was loaded with Keppra by the neurologist, and neurological evaluation is pending. Upon my evaluation, I felt the patient must have sustained a significant anoxic brain injury touched bases on this with her mother at bedside, but I felt it would be best to determine the severity of her oxygen brain injury over the next 72 hours. And she is yet to be seen by neurology on consultation. Recommended empiric antibiotics for aspiration pneumonia, patient is now on GI and DVT prophylaxis, and repeat CT of the brain this morning showed no evidence of acute process involving the brain. Patient was reevaluated today on 07/19/2016, no change whatsoever in her overall neurological status, patient was seen by the neurologist, and more seizure medications were added, however she seemed to respond much better with the higher dose of propofol. Today the patient still on mechanical ventilation, she seems to be a bit tachycardic, and blood pressure is elevated, hence I recommended Dilaudid 1 mg IV push every 4 hours as needed. That seems to help quite well for her tachycardia and her elevated blood pressure. Patient remains unresponsive to any painful stimuli, her eyes remain deviated upwards. All her labs were reviewed including ABG, and they seem to be relatively unremarkable. FiO2 was decreased down to 35%. Chest x-ray is showing significant improvement in her perihilar infiltrates. Patient remains on antibiotics for presumptive aspiration pneumonia. Patient was reevaluated today on 07/20/2016, remains on mechanical ventilation, assist control mode of mechanical ventilation, overall neurological status is about the same. Continues to have upward deviation of both eyes, no responses to any verbal or painful stimuli whatsoever. Patient was initially admitted after she injected a dose of elephant tranquilizer possibly carfentanil, this has been associated with at least 19 deaths in the [facility]. Obviously this could not be picked up on routine blood tests for opiates testing. At any rate patient apparently sustained a significant brain injury and no major changes noted neurologically over the last 48 hours since admission. Chest x-ray was reviewed, ABG was reviewed, all labs were reviewed, and no major abnormality needs to be addressed at this point. Today I instructed the nurses to hold propofol, and assess if there is any clinical response whatsoever. Reevaluated today on 07/21/2016, no change compared to the note above. patient is unresponsive to any stimuli, eyes are about the same,neurological status is no different overall. Pulmonary status is about the same, labs are basically unchanged. Meds are practically about the same. Objective - Vital Signs Vital signs: Vital Signs Temp 100.2 F H 07/21/16 12:00 Pulse 118 H 07/21/16 12:00 Resp 26 H 07/21/16 12:00 BP 155/89 07/21/16 12:00 Pulse Ox 94 L 07/21/16 12:00 Intake & Output 07/20/16 07/21/16 07/21/16 18:59 06:59 18:59 Intake Total 9786.285 6264 979 Output Total 610 6145 720 Balance 1186.010 -674 259 Weight 55.4 kg 55.4 kg 55.4 kg Intake: IV 143 953 168 0.9 normal saline at KVO 110 920 150 Pressure bag 33 33 18 Intake, IV Titration 1394.010 400 700 Amount Dextrose 5%-0.45% NaCl 1, 1100 300 500 000 ml @ 100 mls/hr IV . Q10H [facility] Rx#:[id number] Lacosamide IV 150 mg In 50 50 Sodium Chloride 0.9% 50 ml @ 100 mls/hr IVPB BID [facility] Rx#:[id number] Piperacillin-Tazobactam 3 50 50 .375 gm In Dextrose/Water 1 50ml.bag @ 12.5 mls/hr IVPB Q8HR [facility] Rx#: [id number] Propofol 500 mg In Empty 44.010 Bag 1 bag @ Titrate IV . Q0M [facility] Rx#:[id number] Valproate Sodium 500 mg 50 100 In Sodium Chloride 0.9% 50 ml @ 50 mls/hr IVPB Q6HR [facility] Rx#:[id number] levETIRAcetam IV 1,000 mg 100 100 In Sodium Chloride 0.9% 100 ml @ 400 mls/hr IVPB Q12HR [facility] Rx#:[id number] Tube Feeding 259 148 111 Output: Urine 610 2175 720 Other: Voiding Method Indwelling Catheter Indwelling Catheter Indwelling Catheter ABP, PAP, CO, CI - Last Documented Arterial Blood Pressure 191/94 - Exam General appearance: unresponsive on mechanical ventilation endotracheal tube is intact, nasogastric tube is intact. Head exam: Present: atraumatic, normocephalic, normal inspection Eye exam: Upward deviation of both eyes was noted, pupils are both reactive to light ENT exam: Present: normal exam, mucous membranes moist Neck exam: Present: normal inspection. Absent: tenderness, meningismus, lymphadenopathy Respiratory exam: Minimal crackles at the bases, no rhonchi, no wheezes Cardiovascular Exam: Present: normal rhythm, tachycardia, normal heart sounds. Absent: systolic murmur, diastolic murmur, rubs, gallop, clicks GI/Abdominal exam: Present: soft, normal bowel sounds. Absent: distended, tenderness, guarding, rebound, rigid Extremities exam: Present: normal inspection, full ROM, normal capillary refill. Absent: tenderness, pedal edema, joint swelling, calf tenderness Back exam: Present: normal inspection Neurological exam: Present: altered, patient is unresponsive to any stimuli, upward deviation of both eyes noted pupils are both reactive no response to any painful stimuli. Skin exam: No cyanosis noted. And no clubbing. - Labs CBC & Chem 7: 07/21/16 05:10 07/21/16 05:10 Labs: Abnormal Lab Results - Last 24 Hours (Table) 07/20/16 07/20/16 07/21/16 Range/Units 18:04 23:32 05:10 WBC 12.9 H (3.8-10.6) k/uL Sodium (137-145) mmol/L Creatinine (0.52-1.04) mg/dL Glucose (74-99) mg/dL POC Glucose (mg/dL) 149 H 101 H (75-99) mg/dL Calcium (8.4-10.2) mg/dL AST (14-36) U/L Total Protein (6.3-8.2) g/dL Albumin (3.5-5.0) g/dL 07/21/16 07/21/16 Range/Units 05:10 12:09 WBC (3.8-10.6) k/uL Sodium 135 L (137-145) mmol/L Creatinine 0.40 L (0.52-1.04) mg/dL Glucose 119 H (74-99) mg/dL POC Glucose (mg/dL) 116 H (75-99) mg/dL Calcium 8.2 L (8.4-10.2) mg/dL AST 108 H (14-36) U/L Total Protein 5.8 L (6.3-8.2) g/dL Albumin 2.9 L (3.5-5.0) g/dL Microbiology - Last 24 Hours (Table) 07/18/16 04:50 Blood Culture - Preliminary Blood No Growth after 72 hours 07/18/16 05:04 Blood Culture - Preliminary Blood No Growth after 72 hours Assessment and Plan Plan: Impression: 1 status post acute cardiopulmonary arrest, most likely secondary to carfentanil (elephant tranquilizer) overdose. Although her drug screen was negative, and no response was noted to Narcan upon initial evaluation by EMS. Apparently her boyfriend stated to the nurses that is the narcotics that the patient overdosed on. 2 acute episode of ventricular fibrillation requiring cardioversion by EMS in the field. 3 acute bilateral aspiration pneumonia improving on chest x-ray today 4 acute respiratory failure secondary to above. Requiring intubation and mechanical ventilation. 5 history of IV drug abuse and alcohol abuse 6 strongly suspect severe anoxic brain injury. Recommendation: Continue present supportive care measures including mechanical ventilation, GI and DVT prophylaxis, seizure precautions and she is presently on Keppra, and valproic acid nutritional support, empiric antibiotics for aspiration pneumonia, discussed her condition with her mother at bedside, await further neurological recommendations regarding her anoxic brain injury and potential outcome and possibly consider comfort care measures. Prognosis remains poor and guarded. Critical care time is 32 minutes. Time with Patient: Greater than 30
--- NOTE | 2016-07-21 14:23 | P.PN ---
Subjective Principal diagnosis: Status epilepticus, drug overdose, anoxic brain injury Is a 20-year-old female continuing to be evaluated by the neurology service. She was brought in for suspected IV drug overdose. She was found unresponsive by a friend who started CPR. Her downtime was unknown. She was intubated and defibrillated on the scene. Initial CT was normal, follow-up CT showed no acute intracranial abnormalities. There was some twitching that was felt to be persistent seizure activity. She was started on IV Keppra and Depakote because her EEG did show sharp waves with recurrent generalized epileptiform discharges. Her repeat EEG showed no epileptiform waves. She continues to be on a ventilator and unresponsive. Nurses report there is no spontaneous movement except some eye blinking motions. Objective - Vital Signs Vital signs: Vital Signs Temp 100.2 F H 07/21/16 12:00 Pulse 119 H 07/21/16 13:00 Resp 21 07/21/16 13:00 BP 151/85 07/21/16 13:00 Pulse Ox 93 L 07/21/16 13:00 Intake & Output 07/20/16 07/21/16 07/21/16 18:59 06:59 18:59 Intake Total 0047.570 6428 1129 Output Total 610 2175 1020 Balance 1186.010 -254 109 Weight 55.4 kg 55.4 kg 55.4 kg Intake: IV 143 953 181 0.9 normal saline at KVO 110 920 160 Pressure bag 33 33 21 Intake, IV Titration 1394.010 400 800 Amount Dextrose 5%-0.45% NaCl 1, 1100 300 600 000 ml @ 100 mls/hr IV . Q10H [facility] Rx#:[id number] Lacosamide IV 150 mg In 50 50 Sodium Chloride 0.9% 50 ml @ 100 mls/hr IVPB BID [facility] Rx#:[id number] Piperacillin-Tazobactam 3 50 50 .375 gm In Dextrose/Water 1 50ml.bag @ 12.5 mls/hr IVPB Q8HR [facility] Rx#: [id number] Propofol 500 mg In Empty 44.010 Bag 1 bag @ Titrate IV . Q0M [facility] Rx#:[id number] Valproate Sodium 500 mg 50 100 In Sodium Chloride 0.9% 50 ml @ 50 mls/hr IVPB Q6HR [facility] Rx#:[id number] levETIRAcetam IV 1,000 mg 100 100 In Sodium Chloride 0.9% 100 ml @ 400 mls/hr IVPB Q12HR [facility] Rx#:[id number] Tube Feeding 259 148 148 Output: Urine 610 2175 1020 Other: Voiding Method Indwelling Catheter Indwelling Catheter Indwelling Catheter ABP, PAP, CO, CI - Last Documented Arterial Blood Pressure 191/94 - Exam The patient is intubated and unresponsive in her ICU bed. - Constitutional General appearance: Present: thin - EENT EENT Comment(s): Upper gaze Eyes: Absent: PERRLA - Neurologic Neurologic Comment(s): The patient remains intubated and off sedation in the ICU. There is no spontaneous movement. Today there is no corneal reflex. No response to painful stimuli. No significant brainstem reflexes. - Labs CBC & Chem 7: 07/21/16 05:10 07/21/16 05:10 Labs: Abnormal Lab Results - Last 24 Hours (Table) 07/20/16 07/20/16 07/21/16 Range/Units 18:04 23:32 05:10 WBC 12.9 H (3.8-10.6) k/uL Sodium (137-145) mmol/L Creatinine (0.52-1.04) mg/dL Glucose (74-99) mg/dL POC Glucose (mg/dL) 149 H 101 H (75-99) mg/dL Calcium (8.4-10.2) mg/dL AST (14-36) U/L Total Protein (6.3-8.2) g/dL Albumin (3.5-5.0) g/dL 07/21/16 07/21/16 Range/Units 05:10 12:09 WBC (3.8-10.6) k/uL Sodium 135 L (137-145) mmol/L Creatinine 0.40 L (0.52-1.04) mg/dL Glucose 119 H (74-99) mg/dL POC Glucose (mg/dL) 116 H (75-99) mg/dL Calcium 8.2 L (8.4-10.2) mg/dL AST 108 H (14-36) U/L Total Protein 5.8 L (6.3-8.2) g/dL Albumin 2.9 L (3.5-5.0) g/dL Microbiology - Last 24 Hours (Table) 07/18/16 04:50 Blood Culture - Preliminary Blood No Growth after 72 hours 07/18/16 05:04 Blood Culture - Preliminary Blood No Growth after 72 hours Assessment and Plan (1) Anoxic brain injury Status: Acute (2) Toxic encephalopathy Status: Acute (3) Cardiopulmonary arrest Status: Acute (4) Drug overdose Status: Acute (5) Ventricular fibrillation Status: Acute Plan: We will continue her on her current doses of Keppra , Depakote IV, and Vimpat . No seizure activity has been reported. Her prognosis continues to be poor. Continue supportive measures until discussion and decisions have been made by her family. I did discuss the prognosis with patient's mother. I did inform her that she has made no neurological progress since her admission In fact, she has regressed some since my last exam. No further neurological workup is needed. I have performed a history and physical on the above patient. I have reviewed the above note, and agree.
[2016-07-21 18:12] LABS: Hepatitis B Surface Ag Index 0.09
[2016-07-21 18:17] LABS: Hepatitis B Core IgM Index 0.05
[2016-07-21 18:35] LABS: Hepatitis C Virus IgG Ab Reactive (Negative)
[2016-07-21 19:10] LABS: ALT 37 U/L (9-52); AST 96 U/L (14-36); Alkaline Phosphatase 52 U/L (38-126); Amylase 91 U/L (30-110); Anion Gap 8 mmol/L; Blood Urea Nitrogen 12 mg/dL (7-17); Calcium 8.6 mg/dL (8.4-10.2); Carbon Dioxide 28 mmol/L (22-30); Chloride 101 mmol/L (98-107); Glucose 118 mg/dL (74-99); Magnesium 2.1 mg/dL (1.6-2.3); Non-African American GFR(MDRD) >60 (>60 ml/min/1.73 sqM); Phosphorous 3.1 mg/dL (2.5-4.5); Potassium 4.1 mmol/L (3.5-5.1); Sodium 137 mmol/L (137-145); Total Bilirubin 0.6 mg/dL (0.2-1.3); Total Protein 6.5 g/dL (6.3-8.2)
[2016-07-21] MEDS ORDERED: LORazepam 2 MG/ML SYRINGE IV PRN (20:48)
[2016-07-21] MEDS ORDERED: MORPHINE SULFATE 2 MG/ML SYRINGE IV PRN (20:48)
[2016-07-21] MEDS ORDERED: MORPHINE SULFATE (100 MG/2 ML) 100 MG in SODIUM CHLORIDE 0.9% 100 ML IV SCH (21:00)
[2016-07-21 21:22] LABS: Basophils % (A) 0 %; CHCM 33.9; Eosinophils # (A) 0.1 k/uL (0-0.7); Eosinophils % (A) 1 %; HDW 2.33; HGB 13.8 gm/dL (11.4-16.0); Luc % (Auto) 2; Lymphocytes % (A) 8 %; MCH 28.2 pg (25.0-35.0); MCHC 32.9 g/dL (31.0-37.0); MCV 85.7 fL (80.0-100.0); Mean Platelet Volume 7.8; Monocytes # (A) 0.6 k/uL (0-1.0); Monocytes % (A) 5 %; Neutrophils # (A) 11.1 k/uL (1.3-7.7); Neutrophils % (A) 85 %; RDW 12.8 % (11.5-15.5); WBC (Perox) 13.55
[2016-07-21 21:46] LABS: Appearance,Urine Clear (Clear); Bilirubin,Urine Negative (Negative); Glucose,Urine (UA) Negative (Negative); Ketones,Urine Trace (Negative); Leukocyte Esterase,Urine Negative (Negative); Nitrite,Urine Negative (Negative); Protein,Urine Trace (Negative); Specific Gravity,Urine 1.016 (1.001-1.035); UA Billing (MACRO vs. MICRO) CHEM; Urobilinogen,Urine <2.0 mg/dL (<2.0)
[2016-07-21 23:04] VITALS: TEMP 97.7
[2016-07-21 23:18] VITALS: PULSE 163; RESP 9
[2016-07-22 00:24] VITALS: BP 164/82
[2016-07-22] MEDS: IPRATROPIUM-ALBUTEROL 3 ML NEB INHALATION SCH (02:46)
[2016-07-22] MEDS: PIPERACILLIN-TAZOBACTAM 3.375 GM in DEXTROSE/WATER 1 50ML.BAG IVPB SCH (04:39)
[2016-07-22] MEDS: HEPARIN SODIUM,PORCINE 5,000 UNIT/ML 1 ML VIAL SQ SCH (04:39)
[2016-07-22] MEDS: INSULIN LISPRO (humaLOG) 300 UNIT/3 ML VIAL SQ SCH (04:40)
[2016-07-22] MEDS: VALPROATE SODIUM 500 MG in SODIUM CHLORIDE 0.9% 50 ML IVPB SCH (04:40)
[2016-07-22] MEDS: DEXTROSE 5%-0.45% NACL 1,000 ML IV SCH (04:41)
--- NOTE | 2016-07-22 11:23 | PN ---
DATE OF SERVICE: 07/21/2016 INTERVAL HISTORY: Ms. Figueroa is a 20 -year-old female who was admitted to the hospital after cardiology pulmonary arrest and drug overdose. Currently patient is in hypoxic respiratory failure secondary to drug overdose and positive heroin and ( ) by UDS. UDS showed only benzodiazepines. Otherwise, patient does have ( ) and repeat EEG showed no seizure activity. Patient is being treated for antibiotics for possible aspiration pneumonia and prophylactic seizure medications. Neurology and pulmonology following the patient. Prognosis poor and the patient's mother decided to be comfort measures and [employer] has been consulted. Complete review of systems could not be obtained from patient. CURRENT MEDICATIONS: Reviewed. PHYSICAL EXAMINATION: A 20 -year-old female currently sedated and intubated. HEENT: Atraumatic, normocephalic. Neck is supple. No JVD. CVS S1, S2 heard. No murmurs, no gallop. LUNGS: Bilateral air entry is present. No wheezing. No crackles. ABDOMEN: Soft, bowel sounds are present. AGRICULTURE INTERN: could not be assessed. EXTREMITIES: No edema. Pulses palpable bilaterally. No clubbing or cyanosis. PSYCHIATRY: Could not be assessed. LABORATORY DATA: WBC 13.0, hemoglobin 15.8, platelets 277. Sodium 137, potassium 4.1, chloride 101, bicarb is 28. BUN 12, creatinine 0.42, albumin 3.2. UA negative for infection. Hepatitis panel negative. IMPRESSION: 1. Anoxic encephalopathy due to cardiopulmonary arrest secondary to drug overdose. 2. Acute drug overdose did not respond to Narcan. UDS showed only benzodiazepines. The patient apparently has been using narcotics, ( ) regular urine test as per her boyfriend on admission. 3. Acute hypoxic respiratory failure secondary to drug overdose and cardiopulmonary arrest currently on mechanical ventilator. 4. Episode of ventricular tachycardia status post cardioversion. 5. Bilateral aspiration pneumonia mainly on the right side. 6. Polysubstance abuse history. 7. Alcohol abuse history. 8. ( ). 9. Deep venous thrombosis prophylaxis. DISCUSSION AND PLAN: The patient will be continued on current antibiotics, and seizure medications and continue with mechanical ventilation. Follow up closely. Prognosis poor, the patient does have due to underlying anoxic encephalopathy. [employer] has been consulted and family has been notified. Prognosis is poor.
--- NOTE | 2016-07-23 16:38 | DS ---
DATE OF ADMISSION: 07/17/2016 DATE OF EXPIRATION: 07/22/2016 DISCHARGE DIAGNOSES: 1. Anoxic encephalopathy due to cardiopulmonary arrest secondary to drug overdose. 2. Acute drug overdose not detected by UDS. 3. Acute hypoxic respiratory failure due to drug overdose and was on mechanical ventilator. 4. Episode of ventricular tachycardia, status post cardioversion emergency medical services. 5. Bilateral aspiration pneumonia, mainly in the right side. 6. Myoclonic jerks/seizures. 7. Polysubstance abuse history. 8. Alcohol abuse history. 9. Deep venous thrombosis prophylaxis with heparin subcutaneous. HOSPITAL COURSE: Ms. Figueroa is a 20-year-old black female with a known history of alcohol abuse and polysubstance abuse, was brought to the hospital, status post cardiopulmonary arrest and drug overdose. Patient had respiratory failure and was and intubated and sedated initially. Patient had a cardiopulmonary arrest and respiratory failure en route and patient was found unresponsive. Down time is not known. Patient was being empirically for possible aspiration pneumonia as well as for seizures. Even though patient is off sedation, patient is very unresponsive and thought to have anoxic encephalopathy. The patient was seen by neurology and EEG was done. Initially EEG showed severe spikes and subsequent EEG did not reveal any seizure activity. Otherwise, the patient was still unresponsive due to anoxic encephalopathy. Due to that, the family has been notified and FAMILY IS AGREEABLE FOR COMFORT CARE. Familia has been notified and was present at bedside. Dr. Gutierrez has been present at bedside until 3:00 a.m. Patient at 2:59 a.m. aFmilia was present at that time ( ) is also at bedside. Patient on 07/22/2016 at 2:59 a.m.
== END 2016-07-22 04:49 | disposition expired | DRG 917 ==
LOC: EDBD → EC 21:47 → 6ICU 22:36 → 5ONC 07-22 02:17
PROVIDERS: ADMIT Hospitalist; ATTEND Hospitalist
PROC: 5A1955Z Respiratory Ventilation, Greater than 96 Consecutive Hours (ICD-10-PCS; principal; 2016-07-17)
DX: T43.591A Poisoning by other antipsychotics and neuroleptics, accidental (unintentional), initial encounter (principal); J96.01 Acute respiratory failure with hypoxia; J69.0 Pneumonitis due to inhalation of food and vomit; G92 Toxic encephalopathy; G93.1 Anoxic brain damage, not elsewhere classified; E87.2 Acidosis; I47.2 Ventricular tachycardia; G40.801 Other epilepsy, not intractable, with status epilepticus; I49.01 Ventricular fibrillation; E83.51 Hypocalcemia; F10.10 Alcohol abuse, uncomplicated; F17.200 Nicotine dependence, unspecified, uncomplicated; F19.10 Other psychoactive substance abuse, uncomplicated; I10 Essential (primary) hypertension; B19.20 Unspecified viral hepatitis C without hepatic coma; F32.9 Major depressive disorder, single episode, unspecified; F41.9 Anxiety disorder, unspecified; Z51.5 Encounter for palliative care; Y92.9 Unspecified place or not applicable
CPT/HCPCS: 36415; 36600; 36620; 43753; 51702; 70450; 71010; 71275; 80053; 80074; 80164; 80306; 80307; 80320; 81001; 81003; 81025; 82150; 82550; 82553; 82805; 83036; 83520; 83605; 83690; 83735; 84100; 84484; 85025; 85027; 85379; 85610; 86850; 86900; 86901; 87040; 87070; 87086; 87205; 93005; 93306; 94002; 94003; 94640; 95819; 96361; 96365; 96375; 99291